=== PATIENT | female | born 1955 | race Caucasian/White ===

== ENCOUNTER 2019-02-21 18:36 | Inpatient (IN) ==
[2019-02-22] MEDS ORDERED: Naloxone 0.4 MG/ML INJ IVP PRN ×2 (00:11→10:06)
--- NOTE | 2019-02-22 00:32 | Internal Med History&Physical ---
Date of Encounter: 02/21/19 Time of Encounter: 23:30 Internal Medicine - H&P: HPI Chief complaint: Fall Admitted From: Hospital to Hospital Transfer Plans for Post Hospital Care: Home History of present illness: Ms. Rivera is a 64 year old female with past medical history significant for hypertension, GERD, depression, and anxiety who presents as hospital transfer from [facility] following mechanical fall at home. Patient states she was turning around in her kitchen and twisted her leg and lost her footing and fell onto her back. Denies striking her head, losing consciousness, or current anticoagulation use. Patient underwent a right total robotic-assisted knee replacement on 02/01/19 at [facility] with Dr. Mason. Following the fall she reports pain to her lower back and her right lower extremity including opening up her recent surgical incision. Does not think she struck her knee during fall but feels that the twisting of her extremity is what caused her incision to reopen. Reports being unable to bear weight on her right lower extremity following fall. Sending ER obtained x-rays of the lumbar spine which showed some degenerative changes and atherosclerotic cyst disease but no evidence of fracture or malalignment, right hip which showed no acute fracture or subluxation, and right knee showed no fracture with intact hardware and soft tissue defect with some subcutaneous air noted. Sending ER spoke with orthopedic surgeon Dr. Mason who advised for patient to be transferred to [facility] and admitted to medicine and he will see in consult. Orthopedic surgery requested patient be started on Vancom ycin and Zosyn and gave dressing instructions to nursing staff. Pain is improved following pain medication received at sending ER. Currently denies any headache, numbness, tingling, chest pain, shortness of breath, cough, abdominal pain, bowel or bladder changes. Patient reports following up with orthopedic office shortly after surgery and had been recovering well until today. Also follows regularly with her PCP. Past Med Surg Social Fam HX - Past Medical History Medical history: GERD, hypertension, migraine Psychiatric history: anxiety, depression - Past Surgical History Surgical History: breast surgery, cholecystectomy, hysterectomy, orthopedic, other, other Additional surgical history: right shoulder. breast reducation. right total knee - Social History Smoking Status: Former smoker Smokeless Tobacco Status: No Alcohol use: none Drug use: none Internal Medicine - H&P: Meds Aspirin Enteric Coated [Aspirin EC] 325 mg PO BID 10 Days #20 tablet. 02/01/19 [Rx] Buspirone HCl [Buspar] 10 mg PO DAILY 02/01/19 [History] Chlorthalidone 25 mg PO DAILY 02/01/19 [History] Docusate Sodium [Colace] 100 mg PO BID 5 Days #10 capsule 02/01/19 [Rx] Docusate Sodium [Dok] 100 mg PO QAM PRN 02/01/19 [History] Fexofenadine HCl 180 mg PO DAILY 02/01/19 [History] Furosemide [Lasix] 20 mg PO DAILY PRN 02/01/19 [History] Gabapentin 600 mg PO BID 02/01/19 [History] Losartan Potassium [Cozaar] 100 mg PO DAILY 02/01/19 [History] Multivitamin [Daily Multiple Vitamin] 1 tab PO DAILY 02/01/19 [History] Multivits Min/Iron/FA/Herb#186 [Hair, Skin and Nails Caplet] 1 tab PO DAILY 02/01/19 [History] Naproxen Sodium [Aleve] 220 mg PO Q12H 02/01/19 [History] Omeprazole [PriLOSEC] 20 mg PO BID 02/01/19 [History] PARoxetine HCl [Paroxetine HCl] 10 mg PO DAILY 02/01/19 [History] Tizanidine HCl 4 mg PO HS PRN 02/01/19 [History] Allergy/AdvReac Type Severity Reaction Status Date / Time Amoxicillin [From Augmentin] AdvReac Diarrhea Verified 02/01/19 07:45 clavulanic acid AdvReac Diarrhea Verified 02/01/19 07:45 [From Augmentin] All Systems PM: A 10-system review of systems was performed and is negative for pertinent findings except as documented above in the HPI. - Constitutional Vitals: Temp Pulse Resp BP Pulse Ox 97.9 F 67 15 119/73 97 02/21/19 23:50 02/21/19 23:50 02/21/19 23:50 02/21/19 23:50 02/21/19 23:50 Exam: General: Alert and oriented. Skin:No rash, no lesions. Bruising noted to right lower extremity, states since surgery. Right knee dressing dry and intact. Cardiovascular:Normal S1 & S2, no rubs, murmurs or gallops. No JVD. Pulse regular. Lungs:Normal breath sounds, no wheezes or crackles. Abdomen:Soft, non-tender, no rigidity. Extremities:No deformity, no edema, no joint swelling, or clubbing. Tenderness noted to right lower extremity. PMS intact. Neurological:Normal cognition and motor skills. Pulses:Carotid and radial pulses normal +2. Rest of the physical exam is non contributory. - Assessment and Plan (1) Fall Current Visit: Yes Status: Acute Assessment and plan: Reports mechanical fall at home. Denies striking head, losing consciousness, or anticoagulation use. Complains of pain following fall to lower back and right lower extremity including opening up of her recent surgical incision. Underwent right robotic- assisted total knee replacement at [facility] on 02/01/19. Sending ER obtained x-rays of the lumbar spine which showed some degenerative changes and atherosclerotic cyst disease but no evidence of fracture or malalignment, right hip which showed no acute fracture or subluxation, and right knee showed no fracture with intact hardware and soft tissue defect with some subcutaneous air noted. Pain improved following pain medications. Continue pain control with PRN pain medications. Sending ER consulted orthopedic surgeon Dr. Mason who agreed to see patient in a.m. Orthopedic surgery requested patient be placed on Vancomycin and Zosyn and gave dressing instructions to nursing staff, antibiotics ordered. Blood cultures ordered. Fall precautions ordered. NPO. Qualifiers: Encounter type: initial encounter Qualified Code(s): W19.XXXA - Unspecified fall, initial encounter (2) Surgical wound dehiscence Current Visit: Yes Status: Acute Assessment and plan: Right total knee replacement wound dehiscence following fall. Plan as stated above. Qualifiers: Encounter type: initial encounter Qualified Code(s): T81.31XA - Disruption of external operation (surgical) wound, not elsewhere classified, initial encounter (3) Hypertension Current Visit: Yes Status: Chronic Assessment and plan: Continue home medications once verified. Qualifiers: Hypertension type: unspecified Qualified Code(s): I10 - Essential (primary) hypertension (4) Depression with anxiety Current Visit: Yes Status: Chronic Assessment and plan: Continue home medications once verified. (5) GERD (gastroesophageal reflux disease) Current Visit: Yes Status: Chronic Assessment and plan: Continue home medications once verified. Qualifiers: Esophagitis presence: esophagitis presence not specified Qualified Code(s): K21.9 - Gastro-esophageal reflux disease without esophagitis - Time Spent With Patient Total time spent is greater than 50% in coordination of care (as documented) at patient's floor/unit and/or counseling patient:
[2019-02-22] MEDS ORDERED: Ondansetron 4 MG/2 ML VIAL IVP PRN (01:02)
[2019-02-22 01:17] LABS: Basophils # 0.1 K/mcL (0.0-0.2); Basophils % 0.6 %; Eosinophils # 0.1 K/mcL (0.0-0.6); Hematocrit 35.8 % (35.3-44.9); Hemoglobin 11.7 g/dL (11.5-15.4); Immature Granulocytes % 0.3 % (0-4); Lymphocytes # 2.7 K/mcL (0.6-4.6); Lymphocytes % 23.4 %; Mean Corpuscular HGB Conc 32.7 g/dL (31.6-35.5); Mean Corpuscular Hemoglobin 28.4 pg (28.0-33.3); Mean Corpuscular Volume 86.9 fL (83.0-100.0); Mean Platelet Volume 9.5 fL (9.4-12.4); Monocytes # 0.8 K/mcL (0.0-1.3); Monocytes % 7.1 %; Neutrophils # 7.8 K/mcL (1.6-8.9); Platelet Count 413 K/mcL (140-400); Red Blood Count 4.12 M/mcL (3.82-4.97); Red Cell Distribution Width 14.4 % (11.5-14.5); Segmented Neutrophils % 67.6 %; White Blood Count 11.5 K/mcL (4.3-11.1)
[2019-02-22 01:32] LABS: BUN/Creatinine Ratio 18 (6-26); Blood Urea Nitrogen 16 mg/dL (8-23); Calcium 9.3 mg/dL (8.6-10.3); Carbon Dioxide 31 mEq/L (23-29); Chloride 98 mEq/L (98-107); Glucose 124 mg/dL (70-105); Osmolality,Calculated 289 (280-300); Potassium 3.3 mEq/L (3.5-5.1); Sodium 138 mEq/L (136-145); eGFR For African Americans > 60 (> 60); eGFR For Non-African Americans > 60 (> 60)
--- NOTE | 2019-02-22 06:33 | Orthopedics Progress Note ---
Date of Encounter: 02/22/19 Time of Encounter: 06:32 Subjective Interval history: Patient seen this morning, status post right total knee replacement February 01. Patient reports doing well, believe she over did it yesterday patient slipped and fell, resulting wound dehiscence. Alert and oriented 3. Right lower extremity neurovascular intact. Dressing clean dry and intact. Discussed with nurse to last visualized the wound, describes a large wound dehiscence. In order to keep the area sterile, this will be addressed in the OR. Plan is for irrigation debridement wound closure. We reviewed the risks and benefits as well as recovery. All questions were answered. The patient agreed to this treatment plan and acknowledged an understanding of the treatment plan as described. Objective Vital signs: Vital Signs Temp Pulse Resp BP Pulse Ox 02/22/19 03:23 98.1 F 64 15 127/77 98 02/21/19 23:50 97.9 F 67 15 119/73 97 02/21/19 20:53 97.9 F 70 15 138/80 97 Intake and Output 02/21/19 02/21/19 02/22/19 15:59 23:59 07:59 Intake Total 50 / 50 250 / 250 Balance 50 / 50 250 / 250 Intake: IV Fluids 250 / 250 Vancocin 1,500 MG In 0.9 % 250 / 250 Sodium Chloride 250 ML @ 167 mls/hr IVPB ONCE ONE Rx#: [id number] Oral 50 / 50 0 / 0 Other: # Voids 1 Weight 102.623 kg Blood Glucose* 117 - Labs CBC & BMP: 02/22/19 00:50 02/22/19 01:00 Labs: Abnormal lab results WBC 11.5 K/mcL (4.3-11.1) H 02/22/19 00:50 Plt Count 413 K/mcL (140-400) H 02/22/19 00:50 Potassium 3.3 mEq/L (3.5-5.1) L 02/22/19 01:00 Carbon Dioxide 31 mEq/L (23-29) H 02/22/19 01:00 Glucose 124 mg/dL (70-105) H 02/22/19 01:00 POC Glucose 117 mg/dL (70-99) H 02/22/19 05:27 Consult Discharge Plan - Plan Referrals: Eboni Arriaga, COOKER OPERATOR [Primary Care Provider] -
--- NOTE | 2019-02-22 06:40 | Anesthesia Evaluation PreOp ---
Date of Encounter: 02/22/19 Time of Encounter: 07:00 - Past History Planned Operation: Rt Wound Closure Knee Cardiac History: HTN, Hyperlipidemia Pulmonary History: Former smoker MAINTAINABILITY ENGINEER History: Other (Migraine, Lumbar Spondylosis) Other Medical History: GERD, Other (Obese) Anesthesia History: No Prior Anesthetic Complications, Past Anesthesia (Rt TKA 02-01-2019) : No Alcohol Use: none Drug use: none Medications and Allergies Aspirin Enteric Coated [Aspirin EC] 325 mg PO BID 10 Days #20 tablet.dr 02/01/19 [Rx] Buspirone HCl [Buspar] 10 mg PO DAILY 02/01/19 [History] Chlorthalidone 25 mg PO DAILY 02/01/19 [History] Docusate Sodium [Colace] 100 mg PO BID 5 Days #10 capsule 02/01/19 [Rx] Docusate Sodium [Dok] 100 mg PO QAM PRN 02/01/19 [History] Fexofenadine HCl 180 mg PO DAILY 02/01/19 [History] Furosemide [Lasix] 20 mg PO DAILY PRN 02/01/19 [History] Gabapentin 600 mg PO BID 02/01/19 [History] Losartan Potassium [Cozaar] 100 mg PO DAILY 02/01/19 [History] Multivitamin [Daily Multiple Vitamin] 1 tab PO DAILY 02/01/19 [History] Multivits Min/Iron/FA/Herb#186 [Hair, Skin and Nails Caplet] 1 tab PO DAILY 02/01/19 [History] Naproxen Sodium [Aleve] 220 mg PO Q12H 02/01/19 [History] Omeprazole [PriLOSEC] 20 mg PO BID 02/01/19 [History] PARoxetine HCl [Paroxetine HCl] 10 mg PO DAILY 02/01/19 [History] Tizanidine HCl 4 mg PO HS PRN 02/01/19 [History] Allergy/AdvReac Type Severity Reaction Status Date / Time Amoxicillin [From Augmentin] AdvReac Diarrhea Verified 02/01/19 07:45 clavulanic acid AdvReac Diarrhea Verified 02/01/19 07:45 [From Augmentin] - Meds/Allergy Pre-op Review Medications Reviewed: Yes Allergies Reviewed: Yes Beta Blockers on Current Med List: No Anesthesia Results - Labs 02/22/19 00:50 02/22/19 01:00 - Imaging EKG: report reviewed (Sinus Clarke) Anesthesia Exam O2 Sat Height 1.6 m Weight 102.623 kg O2 Sat by Pulse Oximetry 90 O2 Sat by Pulse Oximetry 98 O2 Sat by Pulse Oximetry 97 O2 Sat by Pulse Oximetry 97 Vital Signs Temp Pulse Resp BP Pulse Ox 97.9 F 70 15 138/80 97 02/21/19 20:53 02/21/19 20:53 02/21/19 20:53 02/21/19 20:53 02/21/19 20:53 Height: 5'3 Weight: 226 lbs NPO (# of Hours): MN Pain Scale: 1 - HEENT Pupil (Motor): Pupils equal, EOMI Mallampati: III Teeth: Normal Oral Opening: Less than or equal to 3 - MAINTAINABILITY ENGINEER LOC: Oriented MAINTAINABILITY ENGINEER Motor: Normal RUE, Normal LUE, Normal LLE, Normal Face, Deficit RLE (s/p TKA open wound) MAINTAINABILITY ENGINEER Sensory: Normal: RUE, LUE, RLE, LLE, Face - Cardiac Rhythm: Regular Murmur: None JVD: No Carotid Bruit: No - Pulmonary Breath Sounds: bilateral Clear Respiratory Effort: Symmetrical Anesthesia Assess/Plan ASA Score: 2 Level of consciousness: Cooperative, Oriented Anesthetic Plan: General Autologous Blood: No Monitoring Plan: Standard Monitors Recovery Plan: PACU (Discussed GA, agrees to proceed)
[2019-02-22] MEDS ORDERED: Famotidine 20 MG/2 ML VIAL IVP ONE ×2 (06:43→10:06)
[2019-02-22] MEDS ORDERED: Acetaminophen IV 1,000 MG/100 ML INFUS..BTL IVPB ONE ×2 (06:44→10:06)
[2019-02-22] MEDS ORDERED: Ringers Solution, Lactated 1,000 ML IVC SCH ×3 (06:45→10:06)
[2019-02-22] MEDS ORDERED: Lidocaine -MPF 2% 2 ML VIAL ONE (07:04)
[2019-02-22] MEDS ORDERED: *HR* Midazolam HCl 2 MG/2 ML VIAL ONE (07:04)
[2019-02-22] MEDS ORDERED: *HR* FentaNYL (PF) 100 MCG/2 ML VIAL ONE ×2 (07:04→08:23)
[2019-02-22] MEDS ORDERED: *HR* Propofol 200 MG/20 ML VIAL IVP ONE (07:04)
[2019-02-22] MEDS ORDERED: Ondansetron 4 MG/2 ML VIAL ONE (07:09)
[2019-02-22] MEDS ORDERED: Dexamethasone 4 MG/ML VIAL ONE (07:11)
[2019-02-22] MEDS ORDERED: Ethanol\\Acetic Acid\\Na Ace\\Ben 1,000 ML IRRIG.SOLN IR ONE ×2 (07:15→08:04)
[2019-02-22] MEDS ORDERED: Famotidine 20 MG/2 ML VIAL ONE (07:26)
[2019-02-22] MEDS ORDERED: Piperacillin/Tazobactam 3.375 GM in 0.9 % Sodium Chloride Mini Bag 100 ML IVPB SCH (08:00)
--- NOTE | 2019-02-22 08:11 | Orthopedic Operative Note ---
Date of procedure: 02/22/19 Pre-op diagnosis: Right knee wound dehiscence with extensor mechanism injury Post-op diagnosis: same Procedure: Procedure: Right knee irrigation debridement extensor mechanism repair and wound closure. Estimated blood loss 10 mL Findings: Aspiration of knee consistent with hemarthrosis sent for Gram stain and culture, superficial wound dehiscence, with deeper extensor mechanism injury, with damage to the previous arthrotomy repair Dictation of surgery: Patient brought to the operative placement operative table after general anesthesia was administered the right knee was examined. Patient had a central wound dehiscence, this was on the surface, the right lower extremity is prepped and draped in sterile surgical fashion patient received IV advice prior skin incision. Prior skin incision away from the opening the knee was aspirated consistent with hemarthrosis. Sent for Gram stain and culture. Superficial cultures were obtained to near the wound dehiscence. The wound dehiscence was opened up and explored beneath the superficial injury was an injury to the previous arthrotomy repair. The extensor mechanism. Superficially suture material was removed, the injury was almost the entire incision. This was irrigated. Exploration revealed the disruption of the arthrotomy, this was then opened up to the fullest. Suture material was removed here. No obvious damage to the joint replacement. Patient underwent extensive irrigation and debridement of fibrinous tissue, the knee sat for 1 minute with antibacterial solution was irrigated out with 1 L of pulse irrigation with a second antibacterial solution and then 2 L of pulse irrigation with normal saline. The extensor mechanism was closed with a, a FiberWire suture and Monocryl suture and augmented with PDS suture. The knee was closed by the PA in layers, PDS Monocryl and skin servando. Patient placed in a sterile dressing, postoperative brace, transferred to recovery room in stable condition. Anesthesia: GETA Surgeon: Musa Mason Was there an certified dental assistant present: Yes Circle Edger: Marva Santiago Estimated blood loss (cc): 10 Condition: stable Disposition: PACU
[2019-02-22] MEDS: *HR* HYDROmorphone (PF) 1 MG/ML SYRINGE IVP PRN ×3 (09:20→09:30)
[2019-02-22] MEDS ORDERED: Temazepam 15 MG CAPSULE PO PRN (10:06)
[2019-02-22] MEDS ORDERED: Sennosides 8.6 MG TABLET PO PRN (10:06)
[2019-02-22] MEDS ORDERED: MOM Conc 10 ML UD.LIQ PO PRN (10:06)
[2019-02-22] MEDS ORDERED: *HR* Promethazine 25 MG/ML VIAL IVP PRN (10:06)
--- NOTE | 2019-02-22 10:10 | Anesthesia Evaluation Post Op ---
Date of Encounter: 02/22/19 Time of Encounter: 10:09 - Vital Signs Vital Signs: Vital Signs/O2 Sat, Most Current Temp Pulse Resp BP Pulse Ox 97.0 F L 77 16 137/78 96 02/22/19 08:48 02/22/19 09:48 02/22/19 09:48 02/22/19 09:48 02/22/19 09:48 - Lungs Lungs: Clear Ascult./Percussion - Airway Airway: Non-obstructed - Cardiovascular Regular Rate, Baseline Rhythm - Mental Status Mental Status: Alert & Oriented, Answers Appropriately - Nausea Vomiting Nausea Vomiting: Not Present - Discharge PostOp Status: Transfer Patient to floor
[2019-02-22] MEDS ORDERED: tiZANidine 4 MG TABLET PO PRN (10:33)
[2019-02-22] MEDS ORDERED: NON-FORMULARY MEDICATION 1 EACH EACH (Naproxen Sodium [Aleve] 220 MG) PO SCH (10:45)
--- NOTE | 2019-02-22 11:29 | Electrocardiograph Report ---
[address] [address] Test Date: 2019-02-22 Pat Name: Purvi Rivera Department: 115 Room: [facility] Gender: F Cotton Roll Packer: : [id number] Requested By: Adam Escobar Order Number: [id number] Reading MD: Tami Carpenter Measurements Intervals [place] Rate: 66 P: 61 [place]: 152 QRS: 41 QRSD: 105 T: 34 QT: 415 QTc: 429 Interpretive Statements SINUS RHYTHM Electronically Signed On 02-22-2019 11:27:53 EDT by Tami Carpenter
[2019-02-22] MEDS: Multivit/Ca/Min/Fe/FA 1 TAB TABLET PO SCH (12:07)
[2019-02-22] MEDS: Piperacillin/Tazobactam 3.375 GM in 0.9 % Sodium Chloride Mini Bag 100 ML IVPB SCH ×2 (12:49→20:59)
[2019-02-22] MEDS: 0.9 % Sodium Chloride 1,000 ML IVC SCH (12:51)
--- NOTE | 2019-02-22 14:07 | Internal Med Progress Note ---
Hospitalist Progress Note - Encounter Date of Encounter: 02/22/19 Time of Encounter: 14:04 - Subjective Interval History: Ms. Rivera is a 64 year old female with past medical history significant for hypertension, GERD, depression, and anxiety who presents as hospital transfer from [facility] following mechanical fall at home. Patient underwent a right total robotic-assisted knee replacement on 02/01/19 at [facility] with Dr. Mason. The wound was found dehiscenced and ortho was consulted. She was taken to oral for woudn dehiscence repair and washout 02/22. IV abx with zosyn and vanco was started. Patient seen and examined in the room. She just came back from OR, she is complaining right knee pain, reported absence of fever, chills, or night sweats. - Exam Vitals: Temp Pulse Resp BP Pulse Ox 97.5 F L 65 14 129/75 98 02/22/19 13:00 02/22/19 13:00 02/22/19 13:00 02/22/19 13:00 02/22/19 13:00 Exam: General: Alert and oriented. Skin:No rash, no lesions. Bruising noted to right lower extremity, states since surgery. Right knee dressing dry and intact. Cardiovascular:Normal S1 & S2, no rubs, murmurs or gallops. No JVD. Pulse regular. Lungs:Normal breath sounds, no wheezes or crackles. Abdomen:Soft, non-tender, no rigidity. Extremities: right knee dressing with immobile device Neurological:Normal cognition and motor skills. Pulses:Carotid and radial pulses normal +2. Rest of the physical exam is non contributory. - Assessment and Plan (1) Fall Current Visit: Yes Status: Acute Assessment and Plan: 02/21 Reports mechanical fall at home. Denies striking head, losing consciousness, or anticoagulation use. Complains of pain following fall to lower back and right lower extremity including opening up of her recent surgical incision. Underwent right robotic- assisted total knee replacement at [facility] on 02/01/19. Sending ER obtained x-rays of the lumbar spine which showed some degenerative changes and atherosclerotic cyst disease but no evidence of fracture or malalignment, right hip which showed no acute fracture or subluxation, and right knee showed no fracture with intact hardware and soft tissue defect with some subcutaneous air noted. Pain improved following pain medications. Continue pain control with PRN pain medications. Sending ER consulted orthopedic surgeon Dr. Mason who agreed to see patient in a.m. Orthopedic surgery requested patient be placed on Vancomycin and Zosyn and gave dressing instructions to nursing staff, antibiotics ordered. Blood cultures ordered. Fall precautions ordered. NPO. 02/22 s/p right knee dehiscence repair and washout. Culture pending. Gram stain negative. Currently on Zosyn and Vanco per Ortho. (2) Surgical wound dehiscence Current Visit: Yes Status: Acute Assessment and Plan: Right total knee replacement wound dehiscence following fall. Plan as stated above. (3) Hypertension Current Visit: No Status: Chronic Assessment and Plan: Continue home medications. Pain control. (4) Depression with anxiety Current Visit: No Status: Chronic Assessment and Plan: Continue home medications. (5) GERD (gastroesophageal reflux disease) Current Visit: No Status: Chronic Assessment and Plan: Continue home medications. DVT Prophylaxis: Heparin subcutaneous. - Time Spent with Patient Total time spent is greater than 50% in coordination of care (as documented) at patient's floor/unit and/or counseling patient: Greater than 35 minutes Plan of Care Discussed with: patient Internal Medicine: Result - Labs CBC & Chem 7: 02/22/19 00:50 02/22/19 01:00 Labs: Short CBC 02/22/19 Range/Units 00:50 WBC 11.5 H (4.3-11.1) K/mcL Hgb 11.7 (11.5-15.4) g/dL Hct 35.8 (35.3-44.9) % Plt Count 413 H (140-400) K/mcL Neutrophils # 7.8 (1.6-8.9) K/mcL BMP 02/22/19 01:00 Sodium 138 Potassium 3.3 L Chloride 98 Carbon Dioxide 31 H BUN 16 Creatinine 0.89 Glucose 124 H Calcium 9.3 Consult Discharge Plan - Plan Referrals: Eboni Arriaga, INSURANCE INVESTIGATOR [Primary Care Provider] - (1) Fall Qualifiers: Encounter type: initial encounter Qualified Code(s): W19.XXXA - Unspecified fall, initial encounter (2) Surgical wound dehiscence Qualifiers: Encounter type: initial encounter Qualified Code(s): T81.31XA - Disruption of external operation (surgical) wound, not elsewhere classified, initial encounter (3) Hypertension Qualifiers: Hypertension type: unspecified Qualified Code(s): I10 - Essential (primary) hypertension (5) GERD (gastroesophageal reflux disease) Qualifiers: Esophagitis presence: esophagitis presence not specified Qualified Code(s): K21.9 - Gastro-esophageal reflux disease without esophagitis
[2019-02-22] MEDS: *HR* Heparin 5,000 UNIT/ML VIAL SQ SCH ×2 (16:27→23:15)
[2019-02-22] MEDS: Ascorbic Acid 500 MG TABLET PO SCH (16:27)
[2019-02-22] MEDS: Gabapentin 300 MG CAPSULE PO SCH (20:59)
[2019-02-23] MEDS: 0.9 % Sodium Chloride 1,000 ML IVC SCH (01:35)
[2019-02-23] MEDS: Piperacillin/Tazobactam 3.375 GM in 0.9 % Sodium Chloride Mini Bag 100 ML IVPB SCH ×3 (03:47→17:17)
[2019-02-23 05:42] LABS: Basophils % 0.4 %; Eosinophils # 0.1 K/mcL (0.0-0.6); Eosinophils % 0.5 %; Hematocrit 33.1 % (35.3-44.9); Hemoglobin 10.7 g/dL (11.5-15.4); Immature Granulocytes % 0.3 % (0-4); Lymphocytes # 2.3 K/mcL (0.6-4.6); Lymphocytes % 21.9 %; Mean Corpuscular HGB Conc 32.3 g/dL (31.6-35.5); Mean Corpuscular Hemoglobin 28.2 pg (28.0-33.3); Mean Corpuscular Volume 87.1 fL (83.0-100.0); Mean Platelet Volume 9.5 fL (9.4-12.4); Monocytes # 0.8 K/mcL (0.0-1.3); Monocytes % 7.2 %; Neutrophils # 7.4 K/mcL (1.6-8.9); Platelet Count 383 K/mcL (140-400); Red Cell Distribution Width 14.4 % (11.5-14.5); Segmented Neutrophils % 69.7 %; White Blood Count 10.6 K/mcL (4.3-11.1)
[2019-02-23] MEDS: *HR* Heparin 5,000 UNIT/ML VIAL SQ SCH ×3 (05:59→23:36)
[2019-02-23 06:03] LABS: BUN/Creatinine Ratio 15 (6-26); Blood Urea Nitrogen 15 mg/dL (8-23); Calcium 8.8 mg/dL (8.6-10.3); Carbon Dioxide 29 mEq/L (23-29); Chloride 100 mEq/L (98-107); Glucose 126 mg/dL (70-105); Osmolality,Calculated 288 (280-300); Potassium 4.1 mEq/L (3.5-5.1); Sodium 138 mEq/L (136-145); eGFR For African Americans > 60 (> 60); eGFR For Non-African Americans 57 (> 60)
--- NOTE | 2019-02-23 06:33 | Orthopedics Progress Note ---
Date of Encounter: 02/23/19 Time of Encounter: 06:32 Subjective Interval history: Patient was seen this morning doing well without complaints. Afebrile vital signs stable. Operative extremity: Neurovascularly intact Dressing clean dry and intact Calves nontender Assessment and plan: Continue with postoperative care Hematocrit 33 plan for discharge tomorrow. Objective Vital signs: Vital Signs Temp Pulse Resp BP Pulse Ox 02/22/19 23:18 76 107/69 02/22/19 20:59 96 02/22/19 19:25 98.0 F 68 17 151/71 96 02/22/19 13:00 97.5 F L 65 14 129/75 98 02/22/19 12:00 98.1 F 74 12 117/70 96 02/22/19 11:02 98 F 78 15 138/78 98 02/22/19 10:30 98.3 F 69 14 138/77 92 02/22/19 10:04 98.3 F 69 13 127/69 97 02/22/19 09:48 77 16 137/78 96 02/22/19 09:38 77 16 167/71 97 02/22/19 09:28 77 16 168/78 96 02/22/19 09:18 81 18 152/86 94 02/22/19 09:08 81 18 170/85 96 02/22/19 08:58 75 16 156/94 95 02/22/19 08:48 97.0 F L 67 12 146/87 94 02/22/19 07:31 71 16 127/58 99 02/22/19 06:35 97.8 F 66 17 126/78 90 Intake and Output 02/22/19 02/22/19 02/23/19 15:59 23:59 07:59 Intake Total 350 / 600 1100 / 1100 Output Total 1110 / 1410 300 / 1410 400 / 400 Balance -1110 / -810 50 / -810 700 / 700 Intake: IV Fluids 350 / 600 1100 / 1100 0.9 % Sodium Chloride 1,000 ML 1000 / 1000 @ 75 mls/hr IVC .[id number] [facility] Rx #:[id number] Zosyn 3.375 GM In 0.9 % Sodium 100 / 100 100 / 100 Chloride (Mini-Bag +) 100 ML @ 25 mls/hr IVPB Q8H [facility] Rx#: [id number] Vancocin 1,000 MG In 0.9 % 250 / 250 Sodium Chloride 250 ML @ 166. 667 mls/hr IVPB Q12H [facility] Rx#: [id number] Output: Urine 1100 / 1400 300 / 1400 400 / 400 Estimated Blood Loss Other: Meal Lunch Percent of Meal Consumed 70% # Voids 1 Weight 102.8 kg Patient Weight 02/23/19 23:59 Weight 102.8 kg - Labs CBC & BMP: 02/23/19 05:18 02/23/19 05:18 Labs: Abnormal lab results WBC 11.5 K/mcL (4.3-11.1) H 02/22/19 00:50 RBC 3.80 M/mcL (3.82-4.97) L 02/23/19 05:18 Hgb 10.7 g/dL (11.5-15.4) L 02/23/19 05:18 Hct 33.1 % (35.3-44.9) L 02/23/19 05:18 Plt Count 413 K/mcL (140-400) H 02/22/19 00:50 Potassium 3.3 mEq/L (3.5-5.1) L 02/22/19 01:00 Carbon Dioxide 31 mEq/L (23-29) H 02/22/19 01:00 Est GFR (Non-Af Amer) 57 (> 60) L 02/23/19 05:18 Glucose 126 mg/dL (70-105) H 02/23/19 05:18 POC Glucose 117 mg/dL (70-99) H 02/22/19 05:27 Consult Discharge Plan - Plan Referrals: Eboni Arriaga, LUMBER HACKER [Primary Care Provider] -
[2019-02-23] MEDS ORDERED: NON-FORMULARY MEDICATION 1 EACH EACH (Multivits Min/Iron/Fa/Herb#186 [Hair, Skin And Nails PO SCH (09:00)
[2019-02-23] MEDS ORDERED: Multivitamin Liquid 15 ML UDC PO SCH (09:00)
[2019-02-23] MEDS: Gabapentin 300 MG CAPSULE PO SCH ×2 (09:45→20:14)
[2019-02-23] MEDS: Ascorbic Acid 500 MG TABLET PO SCH ×2 (09:45→17:17)
[2019-02-23] MEDS: Multivit/Ca/Min/Fe/FA 1 TAB TABLET PO SCH (09:45)
--- NOTE | 2019-02-23 11:31 | Event Note ---
Date of Encounter: 02/23/19 Time of Encounter: 12:45 POD#1 s/p Right knee irrigation debridement extensor mechanism repair and wound closure [Right knee wound dehiscence with extensor mechanism injury] 02/22/19 Patient seen at bedside. A&Ox3 Dressing and incision c/d/i TROM brace in locked extension in place with appropriate fit. No calf tenderness, erythema, or warmth. Neurovascularly intact b/l LE. Labwork, vitals, and medications reviewed. Pain control: Adequate Participating in therapy. All questions and concerns addressed. Educated on use of incentive spirometer, ambulation, and hydration. Patient educated on post-operative restrictions and care. Addressed: AWAITING CULTURES - PRELIM superficial demonstrate GNR. Awaiting further results re: antibiotic management. May require ID consultation depending on results and sensitivity. WBAT in brace in locked extension with walker for stability Brace at all times with wheels to either side of knee NO knee motion Remove brace for hygiene only - spot clean only - do not submerge brace. Patient course and disposition discussed with Dr. Mason D/C plan: awaiting further laboratory results
[2019-02-23] MEDS ORDERED: Furosemide 20 MG TABLET PO PRN (13:30)
--- NOTE | 2019-02-23 13:40 | Internal Med Progress Note ---
Hospitalist Progress Note - Encounter Date of Encounter: 02/23/19 Time of Encounter: 08:30 - Subjective Interval History: Seen at bedside. GOt the right knee irrigation and debridement and wound closure yesterday. Denies any pain. Denied fever, chills, rigors. She is feeling fine. Likely to go home tomorrow. No other overnight events. - Exam Vitals: Temp Pulse Resp BP Pulse Ox 98.0 F 69 18 144/78 96 02/23/19 07:02 02/23/19 07:02 02/23/19 07:02 02/23/19 07:02 02/22/19 20:59 Exam: General: Alert and oriented. Skin:No rash, no lesions. Bruising noted to right lower extremity, states since surgery. Right knee dressing dry and intact. Cardiovascular:Normal S1 & S2, no rubs, murmurs or gallops. No JVD. Pulse regular. Lungs:Normal breath sounds, no wheezes or crackles. Abdomen:Soft, non-tender, no rigidity. Extremities: right knee dressing with immobile device Neurological:Normal cognition and motor skills. Pulses:Carotid and radial pulses normal +2. Rest of the physical exam is non contributory. - Assessment and Plan (1) Fall Current Visit: Yes Status: Acute Assessment and Plan: -HAd Reports mechanical fall at home. -CT scan of the head was negative. -Complains of pain following fall to lower back and right lower extremity including opening up of her recent surgical incision. Underwent right robotic- assisted total knee replacement at [facility] on 02/01/19. -ER obtained x-rays of the lumbar spine which showed some degenerative changes and atherosclerotic cyst disease but no evidence of fracture or malalignment, right hip which showed no acute fracture or subluxation, and right knee showed no fracture with intact hardware and soft tissue defect with some subcutaneous air noted. -ortho was consulted who did Right knee irrigation debridement extensor mechanism repair and wound closure. -Pain improved following pain medications. Continue pain control with PRN pain medications. -Currently on vanc and zosyn -Wound culutures showing GNR (2) Surgical wound dehiscence Current Visit: Yes Status: Acute Assessment and Plan: -Right total knee replacement wound dehiscence following fall. -Plan as stated above. (3) Hypertension Current Visit: No Status: Chronic Assessment and Plan: -Continue home medications.l. (4) Depression with anxiety Current Visit: No Status: Chronic Assessment and Plan: -Continue home medications. (5) GERD (gastroesophageal reflux disease) Current Visit: No Status: Chronic Assessment and Plan: -Continue home medications. - Time Spent with Patient Total time spent is greater than 50% in coordination of care (as documented) at patient's floor/unit and/or counseling patient: Internal Medicine: Result - Labs CBC & Chem 7: 02/23/19 05:18 02/23/19 05:18 Labs: Short CBC 02/23/19 Range/Units 05:18 WBC 10.6 (4.3-11.1) K/mcL Hgb 10.7 L (11.5-15.4) g/dL Hct 33.1 L (35.3-44.9) % Plt Count 383 (140-400) K/mcL Neutrophils # 7.4 (1.6-8.9) K/mcL BMP 02/23/19 05:18 Sodium 138 Potassium 4.1 Chloride 100 Carbon Dioxide 29 BUN 15 Creatinine 0.98 Glucose 126 H Calcium 8.8 Consult Discharge Plan - Plan Referrals: Eboni Arriaga, FRUIT HARVESTER [Primary Care Provider] - (1) Fall Qualifiers: Encounter type: initial encounter Qualified Code(s): W19.XXXA - Unspecified fall, initial encounter (2) Surgical wound dehiscence Qualifiers: Encounter type: initial encounter Qualified Code(s): T81.31XA - Disruption of external operation (surgical) wound, not elsewhere classified, initial encounter (3) Hypertension Qualifiers: Hypertension type: unspecified Qualified Code(s): I10 - Essential (primary) hypertension (5) GERD (gastroesophageal reflux disease) Qualifiers: Esophagitis presence: esophagitis presence not specified Qualified Code(s): K21.9 - Gastro-esophageal reflux disease without esophagitis
[2019-02-24] MEDS ORDERED: 0.9 % Sodium Chloride 250 ML ONE (02:08)
[2019-02-24] MEDS: Piperacillin/Tazobactam 3.375 GM in 0.9 % Sodium Chloride Mini Bag 100 ML IVPB SCH ×3 (02:28→20:59)
[2019-02-24] MEDS: *HR* Heparin 5,000 UNIT/ML VIAL SQ SCH ×3 (05:57→20:59)
[2019-02-24 06:39] LABS: Basophils # 0.1 K/mcL (0.0-0.2); Basophils % 1.2 %; Eosinophils # 0.3 K/mcL (0.0-0.6); Eosinophils % 3.4 %; Hematocrit 33.5 % (35.3-44.9); Hemoglobin 10.8 g/dL (11.5-15.4); Immature Granulocytes % 0.1 % (0-4); Lymphocytes # 2.4 K/mcL (0.6-4.6); Lymphocytes % 33.3 %; Mean Corpuscular HGB Conc 32.2 g/dL (31.6-35.5); Mean Corpuscular Hemoglobin 28.3 pg (28.0-33.3); Mean Corpuscular Volume 87.7 fL (83.0-100.0); Mean Platelet Volume 9.6 fL (9.4-12.4); Monocytes # 0.6 K/mcL (0.0-1.3); Monocytes % 7.5 %; Platelet Count 372 K/mcL (140-400); Red Blood Count 3.82 M/mcL (3.82-4.97); Red Cell Distribution Width 14.6 % (11.5-14.5); Segmented Neutrophils % 54.5 %; White Blood Count 7.3 K/mcL (4.3-11.1)
--- NOTE | 2019-02-24 06:52 | Orthopedics Progress Note ---
Date of Encounter: 02/24/19 Time of Encounter: 06:51 Subjective Interval history: Patient was seen this morning doing well without complaints. Afebrile vital signs stable. Operative extremity: Neurovascularly intact Dressing clean dry and intact Calves nontender Assessment and plan: Continue with postoperative care Superficial cultures grown Klebsiella, nothing growing from intra-articular. Recommend IV antibiotics for 6 weeks. Objective Vital signs: Vital Signs Temp Pulse Resp BP Pulse Ox 02/24/19 03:58 98.1 F 63 16 123/74 95 02/23/19 23:11 97.9 F 67 17 132/77 96 02/23/19 18:48 98.3 F 83 17 126/56 100 02/23/19 07:02 98.0 F 69 18 144/78 Intake and Output 02/23/19 02/23/19 02/24/19 15:59 23:59 07:59 Intake Total 350 / 2020 220 / 2020 100 / 100 Output Total 600 / 2400 600 / 2400 Balance -250 / -380 -380 / -380 100 / 100 Intake: IV Fluids 350 / 1900 100 / 1900 100 / 100 Zosyn 3.375 GM In 0.9 % Sodium 100 / 400 100 / 400 100 / 100 Chloride (Mini-Bag +) 100 ML @ 25 mls/hr IVPB Q8H [facility] Rx#: [id number] Vancocin 1,000 MG In 0.9 % 250 / 500 Sodium Chloride 250 ML @ 166. 667 mls/hr IVPB Q12H [facility] Rx#: [id number] Oral 120 / 120 Output: Urine 600 / 2400 600 / 2400 Other: Meal Dinner Percent of Meal Consumed 100% - Labs CBC & BMP: 02/24/19 06:19 02/23/19 05:18 Labs: Abnormal lab results WBC 11.5 K/mcL (4.3-11.1) H 02/22/19 00:50 RBC 3.80 M/mcL (3.82-4.97) L 02/23/19 05:18 Hgb 10.8 g/dL (11.5-15.4) L 02/24/19 06:19 Hct 33.5 % (35.3-44.9) L 02/24/19 06:19 RDW 14.6 % (11.5-14.5) H 02/24/19 06:19 Plt Count 413 K/mcL (140-400) H 02/22/19 00:50 Potassium 3.3 mEq/L (3.5-5.1) L 02/22/19 01:00 Carbon Dioxide 31 mEq/L (23-29) H 02/22/19 01:00 Est GFR (Non-Af Amer) 57 (> 60) L 02/23/19 05:18 Glucose 126 mg/dL (70-105) H 02/23/19 05:18 POC Glucose 117 mg/dL (70-99) H 02/22/19 05:27 Vancomycin Trough 15 mcg/mL (5-10) H 02/23/19 11:47 Consult Discharge Plan - Plan Referrals: Eboni Arriaga, HOSPITAL MANAGER [Primary Care Provider] -
[2019-02-24 07:00] LABS: BUN/Creatinine Ratio 17 (6-26); Blood Urea Nitrogen 16 mg/dL (8-23); Calcium 8.8 mg/dL (8.6-10.3); Carbon Dioxide 31 mEq/L (23-29); Chloride 104 mEq/L (98-107); Glucose 109 mg/dL (70-105); Osmolality,Calculated 298 (280-300); Potassium 3.7 mEq/L (3.5-5.1); Sodium 143 mEq/L (136-145); eGFR For African Americans > 60 (> 60); eGFR For Non-African Americans > 60 (> 60)
[2019-02-24] MEDS ORDERED: Lidocaine -MPF 1% 5 ML AMPUL INFILT ONE (09:52)
[2019-02-24] MEDS: Aspirin Enteric Coated 81 MG Tablet PO SCH (10:02)
[2019-02-24] MEDS: Gabapentin 300 MG CAPSULE PO SCH ×2 (10:03→21:01)
[2019-02-24] MEDS: Multivit/Ca/Min/Fe/FA 1 TAB TABLET PO SCH (10:03)
[2019-02-24] MEDS: Ascorbic Acid 500 MG TABLET PO SCH ×2 (10:03→16:14)
--- NOTE | 2019-02-24 13:11 | Event Note ---
Date of Encounter: 02/24/19 Time of Encounter: 10:15 POD#2 s/p Right knee irrigation debridement extensor mechanism repair and wound closure [Right knee wound dehiscence with extensor mechanism injury] 02/22/19 Patient seen at bedside. Sitting in chair. Patient's [id number] at bedside. Patient gives verbal consent to speak about her medical care in presence of family. A&Ox3 Dressing and incision c/d/i TROM brace in locked extension in place with appropriate fit. No calf tenderness, erythema, or warmth. Neurovascularly intact b/l LE. Labwork, vitals, and medications reviewed. Pain control: Adequate Participating in therapy. All questions and concerns addressed. Educated on use of incentive spirometer, ambulation, and hydration. Patient educated on post-operative restrictions and care. Addressed: AWAITING CULTURES - PRELIM superficial demonstrate Klebsiella aerogenes. Sensitivity report reviewed. Given that patient had disruption of wound through capsule with extensor mechanism injury, concern for joint infection potential exists. patient will require intermediate term IV antibiotics of 6weeks. PICC team consulted for placement. ID consultation requested for assistance in appropriate antibiotic selection. Personally spoke with Dr. Otero re: patient's status and he agrees to see patient. WBAT in brace in locked extension with walker for stability Brace at all times with wheels to either side of knee NO knee motion Remove brace for hygiene only - spot clean only - do not submerge brace. Patient course and disposition discussed with Dr. Mason D/C plan: Home with home health vs ECF for IV antibiotic administration.
[2019-02-24] MEDS ORDERED: ALPRAZolam 0.5 MG TABLET PO ONE (13:12)
--- NOTE | 2019-02-24 13:47 | Infectious Disease Consult ---
Infectious Disease-Consult - Encounter Date/Time Date of Encounter: 02/24/19 Time of Encounter: 13:46 - Data of Consult Patient: new to practice Reason for consult: Concern for septic arthritis Consult date: 02/24/19 Requesting Physician: Rafael Burnett Primary Care Provider: Eboni Arriaga CNP - HPI HPI: Patient is a 64 year old gentleman who presented to [facility] on 02/22 as a hospital to hospital transfer for a fall, we are consulted on 02/24 for antibiotics recommendations. Briefly, Patient is a 64 year old woman with PMH of HTN, GERD, Anxiety/depression who underwent robotic assisted TKA of the right on 02/01/19 and discharged with no complications suffered a fall at home and struck her knee. Patient had wound dehisence and was tranferred for evaluation. Since admission, vital signs reveal no fever, no tachycardia and no tachypnea. labs revealed WBC of 11.5 with normal diff, BUN/Cr 16/0.89. Patient was taken to the OR on 02/22 where she underwent R knee I&D, extensor mechanism repair and wound closure due to deep extensor mechanism injury with damage to previous arthrotomy repair. wound cultures were sent and they grew Klebsiella aerogenes ortiz sensitive. Patient was started on broad spectrum antibiotics and we were asked to see patient and make further recommendations. Currenlty patient laying in bed. appears comfortable. No LUND, no CP, no SOB, no N/V. She does admit to 2 bouts of diarrhea that were watery. Patient denies any abdominal pain and no urinary symptoms. Pain under control - ROS Review of Systems: 10 point review of systems done, negative other for what mentioned in history of present illness - Results CBC & Chem 7: 02/24/19 06:19 02/24/19 06:19 - Exam Vitals: Temp Pulse Resp BP Pulse Ox 97.6 F 76 16 120/73 99 02/24/19 07:00 02/24/19 07:00 02/24/19 07:00 02/24/19 07:00 02/24/19 07:00 Exam: GENERAL: Laying in bed, appears comfortable. HEAD: Normocephalic atraumatic EYES: PERRLA, EOMI, no conjunctival hemorrhage, sclera anicteric ENT: Mucous membranes moist, no oral thrush NECK: Supple. No meningeal signs. No masses LUNGS: Chest expanding symmetrically. Lungs sounds audible both lung zarco. No wheezing, no rhonchi CV: RRR, S1S2, ABDOMEN: Soft, nontender, nondistended. Bowel sounds audible and hyperactive BACK: No CVA tenderness. Normal inspection. No tenderness over the spine EXTREMITY: Adequate perfusion. R knee surgical wound intact without drainage, erythema SKIN: Normal color. No rash. NEURO: Awake alert oriented 3. No obvious focal deficit PSYCH: Calm and appropriate. No agitation. Buspirone HCl [Buspar] 10 mg PO DAILY 02/01/19 [History] Docusate Sodium [Dok] 100 mg PO QAM PRN 02/01/19 [History] Fexofenadine HCl 180 mg PO DAILY 02/01/19 [History] Furosemide [Lasix] 20 mg PO DAILY PRN 02/01/19 [History] Gabapentin 600 mg PO BID 02/01/19 [History] Losartan Potassium [Cozaar] 100 mg PO DAILY 02/01/19 [History] Multivitamin [Daily Multiple Vitamin] 1 tab PO DAILY 02/01/19 [History] Multivits Min/Iron/FA/Herb#186 [Hair, Skin and Nails Caplet] 1 tab PO DAILY 02/01/19 [History] Naproxen Sodium [Aleve] 220 mg PO Q12H 02/01/19 [History] Omeprazole [PriLOSEC] 20 mg PO BID 02/01/19 [History] PARoxetine HCl [Paroxetine HCl] 10 mg PO DAILY 02/01/19 [History] Tizanidine HCl 4 mg PO BID PRN 02/01/19 [History] Acetaminophen [Tylenol] 500 mg PO Q8H PRN 02/22/19 [History] Aspirin [Lo-Dose Aspirin EC] 81 mg PO DAILY 02/22/19 [History] Chlorthalidone 50 mg PO DAILY 02/22/19 [History] Allergy/AdvReac Type Severity Reaction Status Date / Time Amoxicillin [From Augmentin] AdvReac Diarrhea Verified 02/01/19 07:45 clavulanic acid AdvReac Diarrhea Verified 02/01/19 07:45 [From Augmentin] - Assessment and Plan (1) Status post total right knee replacement Current Visit: No Status: Acute s/p TKA right on 02/01/19 SNOMED Code(s): 0609954720896, 9074864536479 (2) Surgical wound dehiscence Current Visit: Yes Status: Acute s/p fall at home with trauma to R knee s/p TKA R 02/01/19 wound dehiscence s/p Right knee irrigation debridement extensor mechanism repair and wound closure 02/22/19 superficial wound culture positive for pansensitive Klebsiella aerogenes intra op cultures not finalized yet Qualifiers: Encounter type: initial encounter Qualified Code(s): T81.31XA - Disruption of external operation (surgical) wound, not elsewhere classified, initial encounter SNOMED Code(s): 22145891 (3) Diarrhea Current Visit: Yes Status: Acute could be related to antibiotics need to rule out C diff SNOMED Code(s): 66193888 (4) HTN (hypertension) Current Visit: No Status: Chronic Qualifiers: Hypertension type: unspecified Qualified Code(s): I10 - Essential (primary) hypertension SNOMED Code(s): 14621679 (5) Depression Current Visit: No Status: Chronic Qualifiers: Depression Type: unspecified Qualified Code(s): F32.9 - Major depressive disorder, single episode, unspecified SNOMED Code(s): 29996042 (6) Fall Current Visit: Yes Status: Acute Qualifiers: Encounter type: initial encounter Qualified Code(s): W19.XXXA - Unspecified fall, initial encounter SNOMED Code(s): 0205012, 494341874 (7) Depression with anxiety Current Visit: No Status: Chronic SNOMED Code(s): 193745216 (8) Morbid obesity with BMI of 40.0-44.9, adult Current Visit: Yes Status: Acute SNOMED Code(s): 685157245, 95476690816243 (9) Drug allergy, antibiotic Current Visit: Yes Status: Acute no true allergy diarrhea with Augmentin SNOMED Code(s): 745945205072882 - Recommendations Recommendations: d/w ortho team concern for contamination of hardware wound culture positive for Klebsiella aerogenes but I"m also concerned for skin chad contamination since wound dehiscence was deep will treat with IV rocephin 2 grams daily and Vancomycin 750 mg IV bid ( patient was on 1 gram q12 but her trough was 15 and i'm aiming for a trough of 10) duration of treatment 2 weeks will need to monitor weekly cbc, Bun/Cr, ESR, CRP and vancomycin trough duratoin of treatment likely 2 weeks IV and maybe followed by 2 weeks or oral bactrim if she continues to improve monitor labs and for drug toxicity patient lives alone and she will go to SNF I had a long discussion with the patient and she is agreeable Past Med Surg Social Fam HX - Past Medical History Medical history: GERD, hypertension, migraine Additional medical history: depression Psychiatric history: anxiety, depression - Past Surgical History Surgical History: breast surgery, cholecystectomy, hysterectomy, orthopedic, other, other Additional surgical history: right shoulder. breast reducation. right total knee - Social History Smoking Status: Former smoker Smokeless Tobacco Status: No Alcohol use: none Drug use: none Consult Discharge Plan - Plan Referrals: Eboni Arriaga CHIEF SALES OFFICER [Primary Care Provider] -
--- NOTE | 2019-02-24 14:13 | Internal Med Progress Note ---
Hospitalist Progress Note - Encounter Date of Encounter: 02/24/19 Time of Encounter: 10:45 - Subjective Interval History: Seen at bedside. Culture was taken from the superficial wound are growing Klebsiella and the patient was told that she will need IV antibiotics for 6 week, patient is very disturbed and emotional because of this news. Otherwise, she denies fever, chills, rigors. Denies any new complaints. No acute overnight events. - Exam Vitals: Temp Pulse Resp BP Pulse Ox 97.6 F 76 16 120/73 99 02/24/19 07:00 02/24/19 07:00 02/24/19 07:00 02/24/19 07:00 02/24/19 07:00 Exam: General: Alert and oriented. Skin:No rash, no lesions. Cardiovascular:Normal S1 & S2, no rubs, murmurs or gallops. No JVD. Pulse regular. Lungs:Normal breath sounds, no wheezes or crackles. Abdomen:Soft, non-tender, no rigidity. Extremities: right knee skin stapled with no discharge. No erythema or tenderness or warmth apprecaited Neurological:Normal cognition and motor skills. Pulses:Carotid and radial pulses normal +2. - Assessment and Plan (1) Fall Current Visit: Yes Status: Acute Assessment and Plan: -HAd Reports mechanical fall at home. -CT scan of the head was negative. -Complains of pain following fall to lower back and right lower extremity including opening up of her recent surgical incision. Underwent right robotic- assisted total knee replacement at [facility] on 02/01/19. -ER obtained x-rays of the lumbar spine which showed some degenerative changes and atherosclerotic cyst disease but no evidence of fracture or malalignment, right hip which showed no acute fracture or subluxation, and right knee showed no fracture with intact hardware and soft tissue defect with some subcutaneous air noted. -ortho was consulted who did Right knee irrigation debridement extensor mechanism repair and wound closure. -Pain improved following pain medications. Continue pain control with PRN pain medications. Wound culutures showing Klebsiella aerogenes sesitive to multiple antibioitcs. -Will continue on zosyn and defer the decision to ID for the antibiotics. D/C vancomycin. -Pt may need IV antibiotics for 6 weeks, will consult ID for final recommendations. -If needed PICC with IV antibiotics, pt might need to to SNF for continued care. (2) Surgical wound dehiscence Current Visit: Yes Status: Acute Assessment and Plan: -Right total knee replacement wound dehiscence following fall. -Plan as stated above. (3) Hypertension Current Visit: No Status: Chronic Assessment and Plan: -Continue home medications.l. (4) Depression with anxiety Current Visit: No Status: Chronic Assessment and Plan: -Continue home medications. (5) GERD (gastroesophageal reflux disease) Current Visit: No Status: Chronic Assessment and Plan: -Continue home medications. (6) Constipation Current Visit: Yes Status: Acute Assessment and Plan: -Continue colace, senna and milk of magnesia (7) Morbid obesity with BMI of 40.0-44.9, adult Current Visit: Yes Status: Acute Assessment and Plan: Morbidly obese with the BMI of 40.1. Encouraged to lose weight with consuming less calories MAy benefit from outpaitent referral to obesity clinic. - Time Spent with Patient Total time spent is greater than 50% in coordination of care (as documented) at patient's floor/unit and/or counseling patient: Internal Medicine: Result - Labs CBC & Chem 7: 02/24/19 06:19 02/24/19 06:19 Labs: Short CBC 02/24/19 Range/Units 06:19 WBC 7.3 (4.3-11.1) K/mcL Hgb 10.8 L (11.5-15.4) g/dL Hct 33.5 L (35.3-44.9) % Plt Count 372 (140-400) K/mcL Neutrophils # 4.0 (1.6-8.9) K/mcL BMP 02/24/19 06:19 Sodium 143 Potassium 3.7 Chloride 104 Carbon Dioxide 31 H BUN 16 Creatinine 0.93 Glucose 109 H Calcium 8.8 Consult Discharge Plan - Plan Referrals: Eboni Arriaga, REDIPPER [Primary Care Provider] - (1) Fall Qualifiers: Encounter type: initial encounter Qualified Code(s): W19.XXXA - Unspecified fall, initial encounter (2) Surgical wound dehiscence Qualifiers: Encounter type: initial encounter Qualified Code(s): T81.31XA - Disruption of external operation (surgical) wound, not elsewhere classified, initial encounter (3) Hypertension Qualifiers: Hypertension type: essential hypertension Qualified Code(s): I10 - Essential (primary) hypertension (5) GERD (gastroesophageal reflux disease) Qualifiers: Esophagitis presence: esophagitis presence not specified Qualified Code(s): K21.9 - Gastro-esophageal reflux disease without esophagitis (6) Constipation Qualifiers: Constipation type: drug induced constipation Qualified Code(s): K59.03 - Drug induced constipation
[2019-02-24] MEDS ORDERED: *HR* LORazepam 0.5 MG TABLET PO ONE (17:13)
[2019-02-24] MEDS ORDERED: *HR* LORazepam 0.5 MG TABLET PO PRN (19:15)
[2019-02-25] MEDS: Piperacillin/Tazobactam 3.375 GM in 0.9 % Sodium Chloride Mini Bag 100 ML IVPB SCH ×3 (04:06→18:13)
[2019-02-25 04:41] LABS: BUN/Creatinine Ratio 18 (6-26); Blood Urea Nitrogen 15 mg/dL (8-23); Calcium 8.7 mg/dL (8.6-10.3); Carbon Dioxide 29 mEq/L (23-29); Chloride 104 mEq/L (98-107); Glucose 122 mg/dL (70-105); Osmolality,Calculated 294 (280-300); Potassium 3.6 mEq/L (3.5-5.1); Sodium 141 mEq/L (136-145); eGFR For African Americans > 60 (> 60); eGFR For Non-African Americans > 60 (> 60)
[2019-02-25] MEDS: *HR* Heparin 5,000 UNIT/ML VIAL SQ SCH ×3 (06:28→21:06)
--- NOTE | 2019-02-25 07:57 | Orthopedics Progress Note ---
Date of Encounter: 02/25/19 Time of Encounter: 07:56 Subjective Interval history: Patient was seen this morning doing well without complaints. Afebrile vital signs stable. Operative extremity: Neurovascularly intact Dressing clean dry and intact Calves nontender Assessment and plan: Continue with postoperative care Patient to be discharged to rehabilitation Objective Vital signs: Vital Signs Temp Pulse Resp BP Pulse Ox 02/25/19 03:53 97.5 F L 77 17 131/77 95 02/24/19 22:11 98.0 F 71 17 137/78 99 02/24/19 20:59 99 02/24/19 19:13 98.4 F 76 18 125/66 98 Intake and Output 02/24/19 02/24/19 02/25/19 15:59 23:59 07:59 Intake Total 600 / 700 350 / 350 Output Total 800 / 800 Balance -200 / -100 350 / 350 Intake: IV Fluids 600 / 700 350 / 350 Zosyn 3.375 GM In 0.9 % Sodium 100 / 200 100 / 100 Chloride (Mini-Bag +) 100 ML @ 25 mls/hr IVPB Q8H [facility] Rx#: [id number] Vancocin 1,000 MG In 0.9 % 250 / 250 Sodium Chloride 250 ML @ 166. 667 mls/hr IVPB Q12H [facility] Rx#: [id number] Vancocin 750 MG In 0.9 % Sodium 250 / 250 250 / 250 Chloride 250 ML @ 250 mls/hr IVPB Q12H [facility] Rx#:[id number] Output: Urine 800 / 800 Other: Weight 103.1 kg Patient Weight 02/25/19 23:59 Weight 103.1 kg - Labs CBC & BMP: 02/24/19 06:19 02/25/19 04:00 Labs: Abnormal lab results WBC 11.5 K/mcL (4.3-11.1) H 02/22/19 00:50 RBC 3.80 M/mcL (3.82-4.97) L 02/23/19 05:18 Hgb 10.8 g/dL (11.5-15.4) L 02/24/19 06:19 Hct 33.5 % (35.3-44.9) L 02/24/19 06:19 RDW 14.6 % (11.5-14.5) H 02/24/19 06:19 Plt Count 413 K/mcL (140-400) H 02/22/19 00:50 Potassium 3.3 mEq/L (3.5-5.1) L 02/22/19 01:00 Carbon Dioxide 31 mEq/L (23-29) H 02/24/19 06:19 Est GFR (Non-Af Amer) 57 (> 60) L 02/23/19 05:18 Glucose 122 mg/dL (70-105) H 02/25/19 04:00 POC Glucose 117 mg/dL (70-99) H 02/22/19 05:27 Vancomycin Trough 15 mcg/mL (5-10) H 02/23/19 11:47 Consult Discharge Plan - Plan Referrals: Eboni Arriaga, MANUFACTURING ENGINEER MACHINING [Primary Care Provider] -
[2019-02-25] MEDS: Gabapentin 300 MG CAPSULE PO SCH ×2 (10:08→21:06)
[2019-02-25] MEDS: Multivit/Ca/Min/Fe/FA 1 TAB TABLET PO SCH (10:08)
[2019-02-25] MEDS: Ascorbic Acid 500 MG TABLET PO SCH ×2 (10:09→18:13)
[2019-02-25] MEDS: Aspirin Enteric Coated 81 MG Tablet PO SCH (10:09)
--- NOTE | 2019-02-25 11:34 | Infectious Disease Progress No ---
ID Progress Note Date of Encounter: 02/25/19 Time of Encounter: 11:32 - Subjective Subjective: Patient seen and examined. Clinically doing great. Continues to have some loose stool still soft and was stopped. No chest pain no shortness of breath no nausea no vomiting. Knee pain significantly improved. Vital signs noted Cultures reviewed Labs noted - Objective CBC & Chem 7: 02/24/19 06:19 02/25/19 04:00 - Exam Vitals: Temp Pulse Resp BP Pulse Ox 98.3 F 76 16 122/74 99 02/25/19 08:27 02/25/19 08:27 02/25/19 08:27 02/25/19 08:27 02/25/19 08:27 Exam: GENERAL: Comfortable. Laying in bed NAD HEENT: RICARDO, EOMI LUNGS: Good air sounds bilaterally, no wheezing or rhonchi CV: RRR, S1 S2 ABDOMEN: Soft, nontender, + bowel sounds EXT: Adequate perfusion. Right knee surgical wound with no drainage no erythema. PICC line right upper extremity. NEURO: A&OX3; no focal deficit - Assessment and Plan (1) Status post total right knee replacement Current Visit: No Status: Acute s/p TKA right on 02/01/19 SNOMED Code(s): 5324935925912, [id number] (2) Surgical wound dehiscence Current Visit: Yes Status: Acute s/p fall at home with trauma to R knee s/p TKA R 02/01/19 wound dehiscence s/p Right knee irrigation debridement extensor mechanism repair and wound closure 02/22/19 superficial wound culture positive for pansensitive Klebsiella aerogenes intra op cultures not finalized yet Qualifiers: Encounter type: initial encounter Qualified Code(s): T81.31XA - Disruption of external operation (surgical) wound, not elsewhere classified, initial encounter SNOMED Code(s): 70009996 (3) Diarrhea Current Visit: Yes Status: Acute could be related to antibiotics C. difficile negative Start antibiotics. SNOMED Code(s): 47874731 (4) HTN (hypertension) Current Visit: No Status: Chronic Qualifiers: Hypertension type: unspecified Qualified Code(s): I10 - Essential (primary) hypertension SNOMED Code(s): 18464872 (5) Depression Current Visit: No Status: Chronic Qualifiers: Depression Type: unspecified Qualified Code(s): F32.9 - Major depressive disorder, single episode, unspecified SNOMED Code(s): 68338764 (6) Fall Current Visit: Yes Status: Acute Qualifiers: Encounter type: initial encounter Qualified Code(s): W19.XXXA - Unspecified fall, initial encounter SNOMED Code(s): 9609436, 404215983 (7) Depression with anxiety Current Visit: No Status: Chronic SNOMED Code(s): 233127319 (8) Morbid obesity with BMI of 40.0-44.9, adult Current Visit: Yes Status: Acute SNOMED Code(s): 820270692, 50611487209176 (9) Drug allergy, antibiotic Current Visit: Yes Status: Acute no true allergy diarrhea with Augmentin SNOMED Code(s): 787854165130288 Consult Discharge Plan - Plan Referrals: Eboni Arriaga, INSURANCE FOLLOW UP REP [Primary Care Provider] -
[2019-02-25] MEDS: Ondansetron 4 MG/2 ML VIAL IVP PRN (15:02)
--- NOTE | 2019-02-25 15:33 | Internal Med Progress Note ---
Hospitalist Progress Note - Encounter Date of Encounter: 02/25/19 Time of Encounter: 09:45 - Subjective Interval History: Patient seen at bedside. Denies chest pain, shortness of breath, palpitations. Denies fever, chills, rigors. Likley to be dsicharged tomorrow. No acute event overnight. - Exam Vitals: Temp Pulse Resp BP Pulse Ox 98.3 F 76 16 122/74 99 02/25/19 08:27 02/25/19 08:27 02/25/19 08:27 02/25/19 08:27 02/25/19 08:27 Exam: General: Alert and oriented. Skin:No rash, no lesions. Cardiovascular:Normal S1 & S2, no rubs, murmurs or gallops. No JVD. Pulse regular. Lungs:Normal breath sounds, no wheezes or crackles. Abdomen:Soft, non-tender, no rigidity. Extremities: right knee skin stapled with no discharge. No erythema or ten derness or warmth apprecaited Neurological:Normal cognition and motor skills. Pulses:Carotid and radial pulses normal +2. - Assessment and Plan (1) Fall Current Visit: Yes Status: Acute Assessment and Plan: -HAd Reports mechanical fall at home. -CT scan of the head was negative. -Complains of pain following fall to lower back and right lower extremity including opening up of her recent surgical incision. Underwent right robotic- assisted total knee replacement at [facility] on 02/01/19. -ER obtained x-rays of the lumbar spine which showed some degenerative changes and atherosclerotic cyst disease but no evidence of fracture or malalignment, right hip which showed no acute fracture or subluxation, and right knee showed no fracture with intact hardware and soft tissue defect with some subcutaneous air noted. -ortho was consulted who did Right knee irrigation debridement extensor mechanism repair and wound closure. -Pain improved following pain medications. Continue pain control with PRN pain medications. Wound culutures showing Klebsiella aerogenes sesitive to multiple antibioitcs. -Currently on vancomycin and zosyn, ID on board. -PICC line has been placed -ID to decide post discharge antibiotics (2) Surgical wound dehiscence Current Visit: Yes Status: Acute Assessment and Plan: -Right total knee replacement wound dehiscence following fall. -Plan as stated above. (3) Hypertension Current Visit: No Status: Chronic Assessment and Plan: -Continue home medications.l. (4) Depression with anxiety Current Visit: No Status: Chronic Assessment and Plan: -Continue home medications. (5) GERD (gastroesophageal reflux disease) Current Visit: No Status: Chronic Assessment and Plan: -Continue home medications. (6) Constipation Current Visit: Yes Status: Acute Assessment and Plan: -Continue colace, senna and milk of magnesia (7) Morbid obesity with BMI of 40.0-44.9, adult Current Visit: Yes Status: Acute Assessment and Plan: Morbidly obese with the BMI of 40.1. Encouraged to lose weight with consuming less calories MAy benefit from outpaitent referral to obesity clinic. (8) Diarrhea Current Visit: Yes Status: Acute Assessment and Plan: Likely due to antibiotics C. Diff negatvie - Time Spent with Patient Total time spent is greater than 50% in coordination of care (as documented) at patient's floor/unit and/or counseling patient: Internal Medicine: Result - Labs CBC & Chem 7: 02/24/19 06:19 02/25/19 04:00 Labs: BMP 02/25/19 04:00 Sodium 141 Potassium 3.6 Chloride 104 Carbon Dioxide 29 BUN 15 Creatinine 0.82 Glucose 122 H Calcium 8.7 Consult Discharge Plan - Plan Referrals: Eboni Arriaga, CABLE MECHANIC [Primary Care Provider] - (1) Fall Qualifiers: Encounter type: initial encounter Qualified Code(s): W19.XXXA - Unspecified fall, initial encounter (2) Surgical wound dehiscence Qualifiers: Encounter type: initial encounter Qualified Code(s): T81.31XA - Disruption of external operation (surgical) wound, not elsewhere classified, initial encounter (3) Hypertension Qualifiers: Hypertension type: essential hypertension Qualified Code(s): I10 - Essential (primary) hypertension (5) GERD (gastroesophageal reflux disease) Qualifiers: Esophagitis presence: esophagitis presence not specified Qualified Code(s): K21.9 - Gastro-esophageal reflux disease without esophagitis (6) Constipation Qualifiers: Constipation type: drug induced constipation Qualified Code(s): K59.03 - Drug induced constipation (8) Diarrhea Qualifiers: Diarrhea type: unspecified type Qualified Code(s): R19.7 - Diarrhea, unspecified
[2019-02-26] MEDS: Piperacillin/Tazobactam 3.375 GM in 0.9 % Sodium Chloride Mini Bag 100 ML IVPB SCH ×2 (02:51→11:51)
[2019-02-26 03:03] LABS: Basophils % 0.5 %; Eosinophils # 0.3 K/mcL (0.0-0.6); Eosinophils % 3.9 %; Hematocrit 31.2 % (35.3-44.9); Immature Granulocytes % 0.3 % (0-4); Lymphocytes # 2.5 K/mcL (0.6-4.6); Mean Corpuscular HGB Conc 32.1 g/dL (31.6-35.5); Mean Corpuscular Hemoglobin 28.7 pg (28.0-33.3); Mean Corpuscular Volume 89.4 fL (83.0-100.0); Mean Platelet Volume 9.6 fL (9.4-12.4); Monocytes # 0.7 K/mcL (0.0-1.3); Platelet Count 343 K/mcL (140-400); Red Blood Count 3.49 M/mcL (3.82-4.97); Red Cell Distribution Width 14.6 % (11.5-14.5); Segmented Neutrophils % 58.3 %; White Blood Count 8.7 K/mcL (4.3-11.1)
[2019-02-26 03:18] LABS: BUN/Creatinine Ratio 16 (6-26); Blood Urea Nitrogen 16 mg/dL (8-23); Carbon Dioxide 30 mEq/L (23-29); Chloride 104 mEq/L (98-107); Glucose 118 mg/dL (70-105); Osmolality,Calculated 290 (280-300); Potassium 3.6 mEq/L (3.5-5.1); Sodium 139 mEq/L (136-145); eGFR For African Americans > 60 (> 60); eGFR For Non-African Americans 56 (> 60)
[2019-02-26] MEDS: *HR* Heparin 5,000 UNIT/ML VIAL SQ SCH ×3 (05:21→21:04)
[2019-02-26] MEDS: Multivit/Ca/Min/Fe/FA 1 TAB TABLET PO SCH (07:36)
[2019-02-26] MEDS: Ascorbic Acid 500 MG TABLET PO SCH ×2 (07:36→15:56)
[2019-02-26] MEDS: Aspirin Enteric Coated 81 MG Tablet PO SCH (07:36)
[2019-02-26] MEDS: Gabapentin 300 MG CAPSULE PO SCH ×2 (07:37→20:11)
--- NOTE | 2019-02-26 15:25 | Infectious Disease Progress No ---
ID Progress Note Date of Encounter: 02/26/19 Time of Encounter: 15:24 - Subjective Subjective: Patient seen and examined. Clinically doing great. Continues to have some loose stool still soft and was stopped. No chest pain no shortness of breath no nausea no vomiting. Knee pain significantly improved. Vital signs noted Cultures reviewed Labs noted - Objective CBC & Chem 7: 02/26/19 02:45 02/26/19 02:45 - Exam Vitals: Temp Pulse Resp BP Pulse Ox 97.5 F L 72 18 114/71 96 02/26/19 07:19 02/26/19 07:19 02/26/19 07:19 02/26/19 07:19 02/26/19 07:52 Exam: GENERAL: Comfortable. Laying in bed NAD HEENT: RICARDO, EOMI LUNGS: Good air sounds bilaterally, no wheezing or rhonchi CV: RRR, S1 S2 ABDOMEN: Soft, nontender, + bowel sounds EXT: Right knee surgical wound looks good with no drainage or erythema or signs of infection NEURO: A&OX3; no focal deficit - Assessment and Plan (1) Status post total right knee replacement Current Visit: No Status: Acute s/p TKA right on 02/01/19 SNOMED Code(s): 9386692685981, 7849843665180 (2) Surgical wound dehiscence Current Visit: Yes Status: Acute s/p fall at home with trauma to R knee s/p TKA R 02/01/19 wound dehiscence s/p Right knee irrigation debridement extensor mechanism repair and wound closure 02/22/19 superficial wound culture positive for pansensitive Klebsiella aerogenes Qualifiers: Encounter type: initial encounter Qualified Code(s): T81.31XA - Disruption of external operation (surgical) wound, not elsewhere classified, initial encounter SNOMED Code(s): 42703972 (3) Diarrhea Current Visit: Yes Status: Acute could be related to antibiotics C. difficile negative Qualifiers: Diarrhea type: unspecified type Qualified Code(s): R19.7 - Diarrhea, unspecified SNOMED Code(s): 27115925 (4) HTN (hypertension) Current Visit: No Status: Chronic Qualifiers: Hypertension type: unspecified Qualified Code(s): I10 - Essential (primary) hypertension SNOMED Code(s): 78348262 (5) Depression Current Visit: No Status: Chronic Qualifiers: Depression Type: unspecified Qualified Code(s): F32.9 - Major depressive disorder, single episode, unspecified SNOMED Code(s): 51348345 (6) Fall Current Visit: Yes Status: Acute Qualifiers: Encounter type: initial encounter Qualified Code(s): W19.XXXA - Unspecified fall, initial encounter SNOMED Code(s): 5388893, 063756329 (7) Depression with anxiety Current Visit: No Status: Chronic SNOMED Code(s): 935183906 (8) Morbid obesity with BMI of 40.0-44.9, adult Current Visit: Yes Status: Acute SNOMED Code(s): 576990198, 10047676448615 (9) Drug allergy, antibiotic Current Visit: Yes Status: Acute no true allergy diarrhea with Augmentin SNOMED Code(s): 646497811540981 - Recommendations Recommendations: Continue vancomycin 750 mg IV every 12 hours with a call vancomycin trough around 10 Continue Rocephin 2 g IV every 24 hours Duration of treatment through 03/08/2019 After that we will treat with Bactrim for 2 weeks by mouth Patient has a PICC line placed Weekly CBC, BUN/creatinine, ESR, CRP and vancomycin trough while on IV antibi otics Consult Discharge Plan - Plan Referrals: Eboni Arriaga, PERSONAL SECURITY SPECIALIST [Primary Care Provider] -
[2019-02-26] MEDS: cefTRIAXone 2,000 MG in Water for inj. (sterile) 20 ML IVP SCH (15:55)
--- NOTE | 2019-02-26 16:07 | Internal Med Progress Note ---
Hospitalist Progress Note - Encounter Date of Encounter: 02/26/19 Time of Encounter: 11:00 - Subjective Interval History: Patient seen at bedside. Denies chest pain, shortness of breath, palpitations. Denies fever, chills, rigors. Awaiting placement. No acute event overnight. - Exam Vitals: Temp Pulse Resp BP Pulse Ox 97.5 F L 72 18 114/71 96 02/26/19 07:19 02/26/19 07:19 02/26/19 07:19 02/26/19 07:02/26/19 07:52 Exam: General: Alert and oriented. Skin:No rash, no lesions. Cardiovascular:Normal S1 & S2, no rubs, murmurs or gallops. No JVD. Pulse regular. Lungs:Normal breath sounds, no wheezes or crackles. Abdomen:Soft, non-tender, no rigidity. Extremities: right knee skin stapled with no discharge. No erythema or tend erness or warmth apprecaited Neurological:Normal cognition and motor skills. Pulses:Carotid and radial pulses normal +2. - Assessment and Plan (1) Fall Current Visit: Yes Status: Acute Assessment and Plan: -HAd Reports mechanical fall at home. -Complains of pain following fall to lower back and right lower extremity including opening up of her recent surgical incision. -x-rays of the lumbar spine which showed some degenerative changes and atherosclerotic cyst disease but no evidence of fracture or malalignment, right hip which showed no acute fracture or subluxation, and right knee showed no fracture with intact hardware and soft tissue defect with some subcutaneous air noted. -ortho was consulted who did Right knee irrigation debridement extensor mechanism repair and wound closure. -Pain improved following pain medications. Continue pain control with PRN pain medications. Wound culutures showing Klebsiella aerogenes sesitive to multiple antibioitcs. -Currently on vancomycin and ceftriaxone, ID on board. -PICC line has been placed -TO eb dsicahrged on IV vancomycin and ceftriaxone, to be cntinued until 03/08, then sweitched to bactrim for 2 weeks. -Awaiting placement (2) Surgical wound dehiscence Current Visit: Yes Status: Acute Assessment and Plan: -Right total knee replacement wound dehiscence following fall. -Plan as stated above. (3) Hypertension Current Visit: No Status: Chronic Assessment and Plan: -Continue home medications.l. (4) Depression with anxiety Current Visit: No Status: Chronic Assessment and Plan: -Continue home medications. (5) GERD (gastroesophageal reflux disease) Current Visit: No Status: Chronic Assessment and Plan: -Continue home medications. (6) Constipation Current Visit: Yes Status: Acute Assessment and Plan: -Continue colace, senna and milk of magnesia (7) Morbid obesity with BMI of 40.0-44.9, adult Current Visit: Yes Status: Acute Assessment and Plan: Morbidly obese with the BMI of 40.1. Encouraged to lose weight with consuming less calories MAy benefit from outpaitent referral to obesity clinic. (8) Diarrhea Current Visit: Yes Status: Acute Assessment and Plan: Likely due to antibiotics C. Diff negatvie - Time Spent with Patient Total time spent is greater than 50% in coordination of care (as documented) at patient's floor/unit and/or counseling patient: Internal Medicine: Result - Labs CBC & Chem 7: 02/26/19 02:45 02/26/19 02:45 Labs: Short CBC 02/26/19 Range/Units 02:45 WBC 8.7 (4.3-11.1) K/mcL Hgb 10.0 L (11.5-15.4) g/dL Hct 31.2 L (35.3-44.9) % Plt Count 343 (140-400) K/mcL Neutrophils # 5.0 (1.6-8.9) K/mcL BMP 02/26/19 02:45 Sodium 139 Potassium 3.6 Chloride 104 Carbon Dioxide 30 H BUN 16 Creatinine 1.00 Glucose 118 H Calcium 9.0 Consult Discharge Plan - Plan Referrals: Eboni Arriaga, PALLET SORTER [Primary Care Provider] - (1) Fall Qualifiers: Encounter type: initial encounter Qualified Code(s): W19.XXXA - Unspecified fall, initial encounter (2) Surgical wound dehiscence Qualifiers: Encounter type: initial encounter Qualified Code(s): T81.31XA - Disruption of external operation (surgical) wound, not elsewhere classified, initial encounter (3) Hypertension Qualifiers: Hypertension type: essential hypertension Qualified Code(s): I10 - Essential (primary) hypertension (5) GERD (gastroesophageal reflux disease) Qualifiers: Esophagitis presence: esophagitis presence not specified Qualified Code(s): K21.9 - Gastro-esophageal reflux disease without esophagitis (6) Constipation Qualifiers: Constipation type: drug induced constipation Qualified Code(s): K59.03 - Drug induced constipation (8) Diarrhea Qualifiers: Diarrhea type: unspecified type Qualified Code(s): R19.7 - Diarrhea, unspecified
[2019-02-26] MEDS: Ondansetron 4 MG/2 ML VIAL IVP PRN (20:11)
[2019-02-27 02:30] LABS: Hematocrit 30.8 % (35.3-44.9); Hemoglobin 9.8 g/dL (11.5-15.4); Mean Corpuscular HGB Conc 31.8 g/dL (31.6-35.5); Mean Corpuscular Hemoglobin 28.7 pg (28.0-33.3); Mean Corpuscular Volume 90.1 fL (83.0-100.0); Mean Platelet Volume 9.5 fL (9.4-12.4); Platelet Count 330 K/mcL (140-400); Red Blood Count 3.42 M/mcL (3.82-4.97); Red Cell Distribution Width 14.8 % (11.5-14.5)
[2019-02-27 02:49] LABS: BUN/Creatinine Ratio 17 (6-26); Blood Urea Nitrogen 18 mg/dL (8-23); Calcium 8.8 mg/dL (8.6-10.3); Carbon Dioxide 28 mEq/L (23-29); Chloride 102 mEq/L (98-107); Glucose 114 mg/dL (70-105); Osmolality,Calculated 291 (280-300); Potassium 3.7 mEq/L (3.5-5.1); Sodium 139 mEq/L (136-145); eGFR For African Americans > 60 (> 60); eGFR For Non-African Americans 53 (> 60)
[2019-02-27] MEDS: *HR* Heparin 5,000 UNIT/ML VIAL SQ SCH ×3 (05:44→20:35)
[2019-02-27] MEDS: Ondansetron 4 MG/2 ML VIAL IVP PRN (08:33)
[2019-02-27] MEDS: Gabapentin 300 MG CAPSULE PO SCH ×2 (08:33→20:35)
[2019-02-27] MEDS: Multivit/Ca/Min/Fe/FA 1 TAB TABLET PO SCH (08:34)
[2019-02-27] MEDS: Ascorbic Acid 500 MG TABLET PO SCH ×2 (08:35→16:04)
[2019-02-27] MEDS: Aspirin Enteric Coated 81 MG Tablet PO SCH (08:35)
--- NOTE | 2019-02-27 10:24 | Event Note ---
Date of Encounter: 02/25/19 Time of Encounter: 12:45 POD#3 s/p Right knee irrigation debridement extensor mechanism repair and wound closure [Right knee wound dehiscence with extensor mechanism injury] 02/22/19 Patient seen at bedside. A&Ox3 Dressing and incision c/d/i TROM brace in locked extension in place with appropriate fit. No calf tenderness, erythema, or warmth. Neurovascularly intact b/l LE. Labwork, vitals, and medications reviewed. Pain control: Adequate Participating in therapy. All questions and concerns addressed. Educated on use of incentive spirometer, ambulation, and hydration. Patient educated on post-operative restrictions and care. Addressed: AWAITING CULTURES - PRELIM superficial demonstrate Klebsiella aerogenes. Sensitivity report reviewed. Given that patient had disruption of wound through capsule with extensor mechanism injury, concern for joint infection potential exists. patient will require intermediate term IV antibiotics of 6weeks. PICC team consulted for placement. ID consultation requested for assistance in appropriate antibiotic selection. Personally spoke with Dr. Otero re: patient's status and he agrees to see patient. WBAT in brace in locked extension with walker for stability Brace at all times with wheels to either side of knee NO knee motion Remove brace for hygiene only - spot clean only - do not submerge brace. Patient course and disposition discussed with Dr. Mason D/C plan:ECF for IV antibiotic administration.
--- NOTE | 2019-02-27 10:26 | Event Note ---
Date of Encounter: 02/26/19 Time of Encounter: 13:00 POD#4 s/p Right knee irrigation debridement extensor mechanism repair and wound closure [Right knee wound dehiscence with extensor mechanism injury] 02/22/19 Patient seen at bedside. She states she is very pleased with her care here. A&Ox3 Dressing and incision c/d/i TROM brace in locked extension in place with appropriate fit. No calf tenderness, erythema, or warmth. Neurovascularly intact b/l LE. Labwork, vitals, and medications reviewed. Pain control: Adequate Participating in therapy. All questions and concerns addressed. Educated on use of incentive spirometer, ambulation, and hydration. Patient educated on post-operative restrictions and care. Addressed: AWAITING CULTURES - PRELIM superficial demonstrate Klebsiella aerogenes. Sensitivity report reviewed. Given that patient had disruption of wound through capsule with extensor mechanism injury, concern for joint infection potential exists. patient will require intermediate term IV antibiotics of 6weeks. PICC team consulted for placement. ID consultation requested for assistance in appropriate antibiotic selection. ID recommendations appreciated. WBAT in brace in locked extension with walker for stability Brace at all times with wheels to either side of knee NO knee motion Remove brace for hygiene only - spot clean only - do not submerge brace. Patient course and disposition discussed with Dr. Mason D/C plan: ECF for IV antibiotic administration when authorized
--- NOTE | 2019-02-27 11:59 | Internal Med Progress Note ---
Hospitalist Progress Note - Encounter Date of Encounter: 02/27/19 Time of Encounter: 10:15 - Subjective Interval History: Seen at bedside. Had 3 episodes of diarrhea today in the morning. Feeling below par. Denies any fever, chills, rigors. She says that she is feeling tired because of her diarrhea. Denies any chest pain or shortness of breath. No other overnight events. Awaiting placement. Currently on IV antibiotics. - Exam Vitals: Temp Pulse Resp BP Pulse Ox 97.9 F 70 15 117/72 99 02/27/19 08:23 02/27/19 08:23 02/27/19 08:23 02/27/19 08:23 02/27/19 08:23 Exam: General: Alert and oriented. Skin:No rash, no lesions. Cardiovascular:Normal S1 & S2, no rubs, murmurs or gallops. No JVD. Pulse regular. Lungs:Normal breath sounds, no wheezes or crackles. Abdomen:Soft, non-tender, no rigidity. Extremities: right knee skin stapled with no discharge. No erythema or tenderness or warmth apprecaited Neurological:Normal cognition and motor skills. - Assessment and Plan (1) Fall Current Visit: Yes Status: Acute Assessment and Plan: -HAd Reported mechanical fall at home. -Complains of pain following fall to lower back and right lower extremity including opening up of her recent surgical incision. -x-rays of the lumbar spine which showed some degenerative changes and atherosclerotic cyst disease but no evidence of fracture or malalignment, right hip which showed no acute fracture or subluxation, and right knee showed no fracture with intact hardware and soft tissue defect with some subcutaneous air noted. -ortho was consulted who did Right knee irrigation debridement extensor mechanism repair and wound closure on -Pain improved following pain medications. Continue pain control with PRN pain medications. Wound culutures showing Klebsiella aerogenes sesitive to multiple antibioitcs. -Currently on vancomycin and ceftriaxone, ID on board. -PICC line has been placed -TO be dsicahrged on IV vancomycin and ceftriaxone, to be cntinued until 03/08, then sweitched to bactrim for 2 weeks. -Awaiting placement. (2) Surgical wound dehiscence Current Visit: Yes Status: Acute Assessment and Plan: -Right total knee replacement wound dehiscence following fall. -Plan as stated above. (3) Hypertension Current Visit: No Status: Chronic Assessment and Plan: -Continue home medications. -BP stable (4) Depression with anxiety Current Visit: No Status: Chronic Assessment and Plan: -Continue home medications. (5) GERD (gastroesophageal reflux disease) Current Visit: No Status: Chronic Assessment and Plan: -Continue home medications. (6) Constipation Current Visit: Yes Status: Acute Assessment and Plan: -Currenrly having diarrhea -D/C all laxativees (7) Morbid obesity with BMI of 40.0-44.9, adult Current Visit: Yes Status: Acute Assessment and Plan: Morbidly obese with the BMI of 40.1. Encouraged to lose weight with consuming less calories MAy benefit from outpaitent referral to obesity clinic. (8) Diarrhea Current Visit: Yes Status: Acute Assessment and Plan: Likely due to antibiotics C. Diff negatvie 02/25 HOld lasix, advise patient to keep herself hydrated - Time Spent with Patient Total time spent is greater than 50% in coordination of care (as documented) at patient's floor/unit and/or counseling patient: Internal Medicine: Result - Labs CBC & Chem 7: 02/27/19 02:15 02/27/19 02:15 Labs: Short CBC 02/27/19 Range/Units 02:15 WBC 9.0 (4.3-11.1) K/mcL Hgb 9.8 L (11.5-15.4) g/dL Hct 30.8 L (35.3-44.9) % Plt Count 330 (140-400) K/mcL BMP 02/27/19 02:15 Sodium 139 Potassium 3.7 Chloride 102 Carbon Dioxide 28 BUN 18 Creatinine 1.05 Glucose 114 H Calcium 8.8 Consult Discharge Plan - Plan Referrals: Eboni Arriaga, FLASH WELDER [Primary Care Provider] - (1) Fall Qualifiers: Encounter type: initial encounter Qualified Code(s): W19.XXXA - Unspecified fall, initial encounter (2) Surgical wound dehiscence Qualifiers: Encounter type: initial encounter Qualified Code(s): T81.31XA - Disruption of external operation (surgical) wound, not elsewhere classified, initial encounter (3) Hypertension Qualifiers: Hypertension type: essential hypertension Qualified Code(s): I10 - Essential (primary) hypertension (5) GERD (gastroesophageal reflux disease) Qualifiers: Esophagitis presence: esophagitis presence not specified Qualified Code(s): K21.9 - Gastro-esophageal reflux disease without esophagitis (6) Constipation Qualifiers: Constipation type: drug induced constipation Qualified Code(s): K59.03 - Drug induced constipation (8) Diarrhea Qualifiers: Diarrhea type: unspecified type Qualified Code(s): R19.7 - Diarrhea, unspecified
[2019-02-27] MEDS: cefTRIAXone 2,000 MG in Water for inj. (sterile) 20 ML IVP SCH (16:03)
[2019-02-28 02:25] LABS: BUN/Creatinine Ratio 23 (6-26); Blood Urea Nitrogen 19 mg/dL (8-23); Calcium 9.3 mg/dL (8.6-10.3); Carbon Dioxide 28 mEq/L (23-29); Chloride 101 mEq/L (98-107); Glucose 107 mg/dL (70-105); Osmolality,Calculated 289 (280-300); Potassium 3.7 mEq/L (3.5-5.1); Sodium 138 mEq/L (136-145); eGFR For African Americans > 60 (> 60); eGFR For Non-African Americans > 60 (> 60)
[2019-02-28] MEDS: *HR* Heparin 5,000 UNIT/ML VIAL SQ SCH ×3 (05:56→21:21)
[2019-02-28] MEDS: Multivit/Ca/Min/Fe/FA 1 TAB TABLET PO SCH (11:20)
[2019-02-28] MEDS: Aspirin Enteric Coated 81 MG Tablet PO SCH (11:20)
[2019-02-28] MEDS: Gabapentin 300 MG CAPSULE PO SCH ×2 (11:20→21:20)
[2019-02-28] MEDS: Ascorbic Acid 500 MG TABLET PO SCH ×2 (11:21→18:29)
--- NOTE | 2019-02-28 13:52 | Internal Med Progress Note ---
Hospitalist Progress Note - Encounter Date of Encounter: 02/28/19 Time of Encounter: 13:47 - Subjective Interval History: Patient doing well this morning but complains of sore throat. Still waiting on insurance authorization for SNF transfer. - Exam Vitals: Temp Pulse Resp BP Pulse Ox 98.1 F 75 16 123/74 97 02/28/19 11:53 02/28/19 11:53 02/28/19 11:53 02/28/19 11:53 02/28/19 11:53 Exam: General: Ill-appearing and in no acute distress HEENT: No erythema of posterior pharynx. No exudates. Lymphatics: No mandibular or cervical lymphadenopathy Cardiovascular: RRR. No murmurs. No chest wall tenderness. Lungs: Clear to auscelltation bilaterally. Regular chest rise. Abdomen: Non-tender. No rebound or gaurding. Nl bowel sounds. Extremities: RLE with dressing in place, c/d/i Skin: No rahses, abrasions, or contusions. Nl cap refill. Psych: Nl attention. A&Ox3 Neuro: box toe maker II-XII intact. 5/5 strength. Sensation to light touch and pinprick intact. - Assessment and Plan (1) Surgical wound dehiscence Current Visit: Yes Status: Acute Assessment and Plan: Patient with history of recent right total knee replacement presented after a gr adual fall with infection and dehiscence of surgical wound site. -Ortho was consulted and patient is s/p Right knee irrigation debridement extensor mechanism repair and wound closure on -Wound culutures showing Klebsiella aerogenes sesitive to multiple antibioitcs. -ID consulted, recommend vancomycin and ceftriaxone until 03/08, then switch to Bactrim for 2 weeks -PICC line placed -Awaiting placement PLAN: - Vancomycin and ceftriaxone - Will discuss placement with after holiday weekend - PT/OT (2) Fall Current Visit: Yes Status: Acute Assessment and Plan: Ground-level fall at home. - Will be discharged to rehabilitation facility for PT OT (3) Morbid obesity with BMI of 40.0-44.9, adult Current Visit: Yes Status: Acute DVT Prophylaxis: Heparin Internal Medicine: Result - Labs CBC & Chem 7: 02/27/19 02:15 02/28/19 01:40 Labs: BMP 02/28/19 01:40 Sodium 138 Potassium 3.7 Chloride 101 Carbon Dioxide 28 BUN 19 Creatinine 0.83 Glucose 107 H Calcium 9.3 Consult Discharge Plan - Plan Referrals: Eboni rAriaga, SCIENTIFIC RECRUITER [Primary Care Provider] - (1) Surgical wound dehiscence Qualifiers: Encounter type: initial encounter Qualified Code(s): T81.31XA - Disruption of external operation (surgical) wound, not elsewhere classified, initial encounter (2) Fall Qualifiers: Encounter type: initial encounter Qualified Code(s): W19.XXXA - Unspecified fall, initial encounter
[2019-02-28] MEDS: cefTRIAXone 2,000 MG in Water for inj. (sterile) 20 ML IVP SCH (14:32)
[2019-02-28] MEDS: Loratadine 10 MG TABLET PO SCH (14:33)
--- NOTE | 2019-02-28 18:14 | Orthopedics Progress Note ---
Date of Encounter: 02/27/19 Time of Encounter: 11:05 Subjective Principal diagnosis: Wound dehiscence status post total knee arthroplasty Interval history: The patient is without complaints. Afebrile vital signs are stable. Incision is clean dry and intact. Neurovascularly intact with regard to bilateral lower extremities. Assessment :stable. Plan mobilize , continue antibiotics, continue analgesics, discharge planning. Objective Vital signs: Vital Signs Temp Pulse Resp BP Pulse Ox 02/28/19 17:06 98.4 F 79 16 107/71 97 02/28/19 11:53 98.1 F 75 16 123/74 97 02/28/19 07:12 97.9 F 69 18 136/77 96 02/28/19 04:42 97.9 F 81 20 137/78 95 02/27/19 23:04 97.8 F 79 20 140/69 98 02/27/19 20:47 99 02/27/19 19:05 98.1 F 88 20 133/72 99 Intake and Output 02/28/19 02/28/19 02/28/19 07:59 15:59 23:59 Intake Total 400 / 1120 720 / 1120 Balance 400 / 1120 720 / 1120 Intake: IV Fluids 250 / 250 Vancocin 750 MG In 0.9 % Sodium 250 / 250 Chloride 250 ML @ 250 mls/hr IVPB Q12H [facility] Rx#:[id number] Oral 150 / 870 720 / 870 Other: Meal Lunch Percent of Meal Consumed 100% # Voids 1 Weight 105.6 kg Patient Weight 02/28/19 23:59 Weight 105.6 kg - Labs CBC & BMP: 02/27/19 02:15 02/28/19 01:40 Labs: Abnormal lab results WBC 11.5 K/mcL (4.3-11.1) H 02/22/19 00:50 RBC 3.42 M/mcL (3.82-4.97) L 02/27/19 02:15 Hgb 9.8 g/dL (11.5-15.4) L 02/27/19 02:15 Hct 30.8 % (35.3-44.9) L 02/27/19 02:15 RDW 14.8 % (11.5-14.5) H 02/27/19 02:15 Plt Count 413 K/mcL (140-400) H 02/22/19 00:50 Potassium 3.3 mEq/L (3.5-5.1) L 02/22/19 01:00 Carbon Dioxide 30 mEq/L (23-29) H 02/26/19 02:45 Est GFR (Non-Af Amer) 53 (> 60) L 02/27/19 02:15 Glucose 107 mg/dL (70-105) H 02/28/19 01:40 POC Glucose 117 mg/dL (70-99) H 02/22/19 05:27 Vancomycin Trough 11 mcg/mL (5-10) H 02/27/19 00:17 Consult Discharge Plan - Plan Referrals: Eboni Arriaga, LAB TECHNOLOGIST [Primary Care Provider] -
--- NOTE | 2019-02-28 18:16 | Orthopedics Progress Note ---
Date of Encounter: 02/28/19 Time of Encounter: 18:15 Subjective Principal diagnosis: Wound dehiscence status post total knee arthroplasty Interval history: The patient is without complaints. Afebrile vital signs are stable. Incision is clean dry and intact. Neurovascularly intact with regard to bilateral lower extremities. Assessment :stable. Plan mobilize , continue antibiotics, continue analgesics, discharge planning. Objective Vital signs: Vital Signs Temp Pulse Resp BP Pulse Ox 02/28/19 17:06 98.4 F 79 16 107/71 97 02/28/19 11:53 98.1 F 75 16 123/74 97 02/28/19 07:12 97.9 F 69 18 136/77 96 02/28/19 04:42 97.9 F 81 20 137/78 95 02/27/19 23:04 97.8 F 79 20 140/69 98 02/27/19 20:47 99 02/27/19 19:05 98.1 F 88 20 133/72 99 Intake and Output 02/28/19 02/28/19 02/28/19 07:59 15:59 23:59 Intake Total 400 / 1120 720 / 1120 Balance 400 / 1120 720 / 1120 Intake: IV Fluids 250 / 250 Vancocin 750 MG In 0.9 % Sodium 250 / 250 Chloride 250 ML @ 250 mls/hr IVPB Q12H [facility] Rx#:[id number] Oral 150 / 870 720 / 870 Other: Meal Lunch Percent of Meal Consumed 100% # Voids 1 Weight 105.6 kg Patient Weight 02/28/19 23:59 Weight 105.6 kg - Labs CBC & BMP: 02/27/19 02:15 02/28/19 01:40 Labs: Abnormal lab results WBC 11.5 K/mcL (4.3-11.1) H 02/22/19 00:50 RBC 3.42 M/mcL (3.82-4.97) L 02/27/19 02:15 Hgb 9.8 g/dL (11.5-15.4) L 02/27/19 02:15 Hct 30.8 % (35.3-44.9) L 02/27/19 02:15 RDW 14.8 % (11.5-14.5) H 02/27/19 02:15 Plt Count 413 K/mcL (140-400) H 02/22/19 00:50 Potassium 3.3 mEq/L (3.5-5.1) L 02/22/19 01:00 Carbon Dioxide 30 mEq/L (23-29) H 02/26/19 02:45 Est GFR (Non-Af Amer) 53 (> 60) L 02/27/19 02:15 Glucose 107 mg/dL (70-105) H 02/28/19 01:40 POC Glucose 117 mg/dL (70-99) H 02/22/19 05:27 Vancomycin Trough 11 mcg/mL (5-10) H 02/27/19 00:17 Consult Discharge Plan - Plan Referrals: Eboni Arriaga, SOCIAL WORK THERAPIST [Primary Care Provider] -
[2019-03-01] MEDS: *HR* Heparin 5,000 UNIT/ML VIAL SQ SCH ×2 (05:48→17:33)
[2019-03-01] MEDS: Aspirin Enteric Coated 81 MG Tablet PO SCH (07:45)
[2019-03-01] MEDS: Loratadine 10 MG TABLET PO SCH (07:46)
[2019-03-01] MEDS: Gabapentin 300 MG CAPSULE PO SCH ×2 (07:46→20:03)
[2019-03-01] MEDS: Ascorbic Acid 500 MG TABLET PO SCH ×2 (07:46→15:29)
[2019-03-01] MEDS: Multivit/Ca/Min/Fe/FA 1 TAB TABLET PO SCH (07:46)
--- NOTE | 2019-03-01 10:30 | Internal Med Progress Note ---
Hospitalist Progress Note - Encounter Date of Encounter: 03/01/19 Time of Encounter: 10:28 - Subjective Interval History: Feels fine this morning. Having vaginal itching and requesting Diflucan. Plan for discharge planning tomorrow. - Exam Vitals: Temp Pulse Resp BP Pulse Ox 97.9 F 69 16 154/70 90 03/01/19 06:34 03/01/19 06:34 03/01/19 06:34 03/01/19 06:34 03/01/19 06:34 Exam: General: Ill-appearing and in no acute distress HEENT: No erythema of posterior pharynx. No exudates. Lymphatics: No mandibular or cervical lymphadenopathy Cardiovascular: RRR. No murmurs. No chest wall tenderness. Lungs: Clear to auscelltation bilaterally. Regular chest rise. Abdomen: Non-tender. No rebound or gaurding. Nl bowel sounds. Extremities: RLE with dressing in place, c/d/i Skin: No rahses, abrasions, or contusions. Nl cap refill. Psych: Nl attention. A&Ox3 Neuro: radiation officer II-XII intact. 5/5 strength. Sensation to light touch and pinprick intact. - Assessment and Plan (1) Surgical wound dehiscence Current Visit: Yes Status: Acute Assessment and Plan: Patient with history of recent right total knee replacement presented after a gradual fall with infection and dehiscence of surgical wound site. -Ortho was consulted and patient is s/p Right knee irrigation debridement extensor mechanism repair and wound closure on -Wound culutures showing Klebsiella aerogenes sesitive to multiple antibioitcs. -ID consulted, recommend vancomycin and ceftriaxone until 03/08, then switch to Bactrim for 2 weeks -PICC line placed -Awaiting placement PLAN: - Vancomycin and ceftriaxone - Will discuss placement with after holiday weekend - PT/OT (2) Vaginal pruritus Current Visit: Yes Status: Acute Assessment and Plan: Experiencing vaginal pruritus on antibiotics. - Diflucan (3) Fall Current Visit: Yes Status: Acute Assessment and Plan: Ground-level fall at home. - Will be discharged to rehabilitation facility for PT OT (4) Morbid obesity with BMI of 40.0-44.9, adult Current Visit: Yes Status: Acute Assessment and Plan: Morbidly obese with the BMI of 40.1. - May benefit from outpaitent referral to obesity clinic. DVT Prophylaxis: Heparin - Time Spent with Patient Total time spent is greater than 50% in coordination of care (as documented) at patient's floor/unit and/or counseling patient: Internal Medicine: Result - Labs CBC & Chem 7: 02/27/19 02:15 02/28/19 01:40 - VTE Documentation of Mechanical Device: Intermittent pneumatic compression device Consult Discharge Plan - Plan Referrals: Eboni Arriaga, VEGETABLE WASHING MACHINE OPERATOR [Primary Care Provider] - (1) Surgical wound dehiscence Qualifiers: Encounter type: initial encounter Qualified Code(s): T81.31XA - Disruption of external operation (surgical) wound, not elsewhere classified, initial encounter (3) Fall Qualifiers: Encounter type: initial encounter Qualified Code(s): W19.XXXA - Unspecified fall, initial encounter
[2019-03-01] MEDS ORDERED: Fluconazole 100 MG TABLET PO ONE (10:31)
[2019-03-01] MEDS: cefTRIAXone 2,000 MG in Water for inj. (sterile) 20 ML IVP SCH (15:28)
--- NOTE | 2019-03-01 21:31 | Orthopedics Progress Note ---
Date of Encounter: 03/01/19 Time of Encounter: 09:30 Subjective Principal diagnosis: Wound dehiscence status post total knee arthroplasty Interval history: The patient is without complaints. Afebrile vital signs are stable. Incision is clean dry and intact. Neurovascularly intact with regard to bilateral lower extremities. Assessment :stable. Plan mobilize , continue antibiotics, continue analgesics, discharge planning. Objective Vital signs: Vital Signs Temp Pulse Resp BP Pulse Ox 03/01/19 19:05 99.3 F 78 14 132/88 98 03/01/19 14:45 98.6 F 83 16 145/54 96 03/01/19 10:40 97.8 F 86 17 132/80 98 03/01/19 06:34 97.9 F 69 16 154/70 90 03/01/19 05:14 97.8 F 82 20 149/75 02/28/19 22:35 98.4 F 78 20 132/68 96 Intake and Output 03/01/19 03/01/19 03/01/19 07:59 15:59 23:59 Intake Total 450 / 2260 1020 / 2260 790 / 2260 Output Total 300 / 300 Balance 450 / 1960 720 / 1960 790 / 1960 Intake: IV Fluids 250 / 520 270 / 520 Rocephin 2,000 MG In Water for 20 / 20 inj. (sterile) 20 ML @ 600 mls/ hr IVP Q24H [facility] Rx#:[id number] Vancocin 750 MG In 0.9 % Sodium 250 / 500 250 / 500 Chloride 250 ML @ 250 mls/hr IVPB Q12H [facility] Rx#:[id number] Oral 200 / 1740 750 / 1740 790 / 1740 Output: Urine 300 / 300 Other: Meal Lunch Dinner Percent of Meal Consumed 100% 65% Stool Size Large Stool Consistency soft formed Stool Color Brown # Voids 1 1 1 # Bowel Movements 0 Weight 105.5 kg Patient Weight 03/01/19 23:59 Weight 105.5 kg - Labs CBC & BMP: 02/27/19 02:15 02/28/19 01:40 Labs: Abnormal lab results WBC 11.5 K/mcL (4.3-11.1) H 02/22/19 00:50 RBC 3.42 M/mcL (3.82-4.97) L 02/27/19 02:15 Hgb 9.8 g/dL (11.5-15.4) L 02/27/19 02:15 Hct 30.8 % (35.3-44.9) L 02/27/19 02:15 RDW 14.8 % (11.5-14.5) H 02/27/19 02:15 Plt Count 413 K/mcL (140-400) H 02/22/19 00:50 Potassium 3.3 mEq/L (3.5-5.1) L 02/22/19 01:00 Carbon Dioxide 30 mEq/L (23-29) H 02/26/19 02:45 Est GFR (Non-Af Amer) 53 (> 60) L 02/27/19 02:15 Glucose 107 mg/dL (70-105) H 02/28/19 01:40 POC Glucose 117 mg/dL (70-99) H 02/22/19 05:27 Vancomycin Trough 11 mcg/mL (5-10) H 02/27/19 00:17 - VTE Documentation of Mechanical Device: Intermittent pneumatic compression device Consult Discharge Plan - Plan Referrals: Eboni Arriaga, LIQUOR GRINDING MILL OPERATOR [Primary Care Provider] -
[2019-03-02] MEDS: *HR* Heparin 5,000 UNIT/ML VIAL SQ SCH (05:40)
[2019-03-02] MEDS: Multivit/Ca/Min/Fe/FA 1 TAB TABLET PO SCH (08:07)
[2019-03-02] MEDS: Loratadine 10 MG TABLET PO SCH (08:08)
[2019-03-02] MEDS: Gabapentin 300 MG CAPSULE PO SCH (08:08)
[2019-03-02] MEDS: Ascorbic Acid 500 MG TABLET PO SCH ×2 (08:09→15:55)
[2019-03-02] MEDS: Aspirin Enteric Coated 81 MG Tablet PO SCH (08:09)
[2019-03-02] MEDS: GuaiFENesin Liq 200 MG/10 ML UDC PO PRN ×2 (08:09→15:02)
[2019-03-02 08:18] LABS: Hematocrit 34.5 % (35.3-44.9); Hemoglobin 10.9 g/dL (11.5-15.4); Mean Corpuscular HGB Conc 31.6 g/dL (31.6-35.5); Mean Corpuscular Hemoglobin 28.2 pg (28.0-33.3); Mean Corpuscular Volume 89.1 fL (83.0-100.0); Mean Platelet Volume 9.4 fL (9.4-12.4); Platelet Count 301 K/mcL (140-400); Red Blood Count 3.87 M/mcL (3.82-4.97); Red Cell Distribution Width 15.4 % (11.5-14.5); White Blood Count 9.6 K/mcL (4.3-11.1)
--- NOTE | 2019-03-02 11:51 | Infectious Disease Progress No ---
ID Progress Note Date of Encounter: 03/02/19 Time of Encounter: 11:49 - Subjective Subjective: Patient seen and examined. states she's not feeling well at all. Feeling ear fullness, sore throat, sinus pressure and has a productive cough with brown green sputum. No pleuritic chest pain and no shortness of breath Vital signs noted Tmax 100.8 Cultures reviewed Labs noted - Objective CBC & Chem 7: 03/02/19 08:07 02/28/19 01:40 - Exam Vitals: Temp Pulse Resp BP Pulse Ox 99 F 84 18 129/78 96 03/02/19 07:00 03/02/19 07:00 03/02/19 07:00 03/02/19 07:00 03/02/19 07:00 Exam: GENERAL: Comfortable. Laying in bed NAD HEENT: RICARDO, EOMI. no tonsilar exudate LUNGS: Good air sounds bilaterally, no wheezing or rhonchi CV: RRR, S1 S2 ABDOMEN: Soft, nontender, + bowel sounds EXT: Adequate perfusion. No edema. surgical wound R knee intact NEURO: A&OX3; no focal deficit - Assessment and Plan (1) Status post total right knee replacement Current Visit: No Status: Acute s/p TKA right on 02/01/19 SNOMED Code(s): 5027100711550, 1982962875550 (2) Surgical wound dehiscence Current Visit: Yes Status: Acute s/p fall at home with trauma to R knee s/p TKA R 02/01/19 wound dehiscence s/p Right knee irrigation debridement extensor mechanism repair and wound closure 02/22/19 superficial wound culture positive for pansensitive Klebsiella aerogenes Qualifiers: Encounter type: initial encounter Qualified Code(s): T81.31XA - Disruption of external operation (surgical) wound, not elsewhere classified, initial encounter SNOMED Code(s): 68982233 (3) Diarrhea Current Visit: Yes Status: Acute could be related to antibiotics C. difficile negative Qualifiers: Diarrhea type: unspecified type Qualified Code(s): R19.7 - Diarrhea, unspecified SNOMED Code(s): 72726414 (4) HTN (hypertension) Current Visit: No Status: Chronic Qualifiers: Hypertension type: unspecified Qualified Code(s): I10 - Essential (primary) hypertension SNOMED Code(s): 57503951 (5) Depression Current Visit: No Status: Chronic Qualifiers: Depression Type: unspecified Qualified Code(s): F32.9 - Major depressive disorder, single episode, unspecified SNOMED Code(s): 26870221 (6) Fall Current Visit: Yes Status: Acute Qualifiers: Encounter type: initial encounter Qualified Code(s): W19.XXXA - Unspecified fall, initial encounter SNOMED Code(s): 5956634, 098618210 (7) Depression with anxiety Current Visit: No Status: Chronic SNOMED Code(s): 970302015 (8) Morbid obesity with BMI of 40.0-44.9, adult Current Visit: Yes Status: Acute SNOMED Code(s): 050276130, 60742045337117 (9) Drug allergy, antibiotic Current Visit: Yes Status: Acute no true allergy diarrhea with Augmentin SNOMED Code(s): 176886472252160 (10) Viral syndrome Current Visit: Yes Status: Acute likely the cause of the fever with sinus pressure, cough, sore throat etc SNOMED Code(s): 91037980 - Recommendations Recommendations: Continue vancomycin 750 mg IV every 12 hours with a call vancomycin trough around 10 (last one was 11) Continue Rocephin 2 g IV every 24 hours Duration of treatment through 03/08/2019 check stat Respiratory infectious panel (d/w nursing staff) diarrhea has resolved started on diflucan for patria vaginosis by hospitalist team - VTE Documentation of Mechanical Device: Intermittent pneumatic compression device Consult Discharge Plan - Plan Referrals: Eboni Arriaga CHEESEMAKER [Primary Care Provider] -
[2019-03-02 13:12] LABS: Adenovirus Not Detected (Not Detect); Bordetella Pertussis Not Detected (Not Detect); Chlamydophila pneumoniae Not Detected (Not Detect); Coronavirus 229E Not Detected (Not Detect); Coronavirus HKU1 Not Detected (Not Detect); Coronavirus NL63 Not Detected (Not Detect); Coronavirus OC43 Not Detected (Not Detect); Human Metapneumovirus Not Detected (Not Detect); Human Rhinovirus/Enterovirus DETECTED (Not Detect); Influenza A Subtype 2009 H1 Not Detected (Not Detect); Influenza A Untypeable Not Detected (Not Detect); Influenza B Not Detected (Not Detect); Mycoplasma pneumoniae Not Detected (Not Detect); Parainfluenza Virus 1 Not Detected (Not Detect); Parainfluenza Virus 2 Not Detected (Not Detect); Parainfluenza Virus 3 Not Detected (Not Detect); Parainfluenza Virus 4 Not Detected (Not Detect); Respiratory Syncytial Virus Not Detected (Not Detect)
[2019-03-02] MEDS ORDERED: Fluticasone Propionate Nasal 50 MCG/SPRAY BOTTLE NS SCH (14:12)
[2019-03-02 14:33] VITALS: BP 134/78
[2019-03-02] MEDS: cefTRIAXone 2,000 MG in Water for inj. (sterile) 20 ML IVP SCH (14:46)
--- NOTE | 2019-03-02 16:33 | Discharge Summary ---
Date of Encounter: 03/02/19 Time of Encounter: 16:24 - Discharge Diagnosis (1) Surgical wound dehiscence Priority: Primary Status: Acute Qualifiers: Encounter type: initial encounter Qualified Code(s): T81.31XA - Disruption of external operation (surgical) wound, not elsewhere classified, initial encounter (2) URI (upper respiratory infection) Priority: Secondary Status: Acute Qualifiers: URI type: unspecified viral URI Qualified Code(s): J06.9 - Acute upper respiratory infection, unspecified (3) Vaginal pruritus Priority: Secondary Status: Acute (4) Fall Priority: Secondary Status: Acute Qualifiers: Encounter type: initial encounter Qualified Code(s): W19.XXXA - Unspecified fall, initial encounter (5) Morbid obesity with BMI of 40.0-44.9, adult Priority: Secondary Status: Acute Hospital course: Ms. Rivera is a 64 year old female with history of recent right total knee replacement presented after a GLF with infection and dehiscence of surgical wound site. Ortho was consulted and patient is s/p Right knee irrigation debridement extensor mechanism repair and wound closure on . Wound cultures showing Klebsiella aerogenes sesitive to multiple antibioitcs. ID consulted, recommend vancomycin and ceftriaxone until 03/10, then switch to Bactrim for 2 weeks. -Wound care: Assess dressing daily Change dressing if >50% saturated RLE is to remain straight with brace in place until patient follows up with ortho -Patient to follow-up with ortho 1-2 weeks after hospital stay -Patient to follow-up with ID 4 weeks after discharge -CBC, CMP, and Vanco trough 03/08, fax results to Dr. Otero of [place] [facility] -Of note, patient suffering from a URI at time of discharge and had low-grade fever. Tested positive for rhino virus. Treated symptomatically. - Time Spent with Patient Total time spent providing and/or coordinating discharge services: 90 minutes Time spent: Greater than 30 minutes - Discharge Medications Prescriptions: New Docusate [Colace] 100 mg PO BID capsule Fluticasone Propionate Nasal [Flonase] 100 mcg NS DAILY #0 bottle Oxycodone HCl 5 mg PO Q6H PRN 7 Days #15 tablet PRN Reason: Pain GuaiFENesin/Codeine [Robitussin w/Codeine] 5 ml PO Q6HR 7 Days #1 bottle Sulfamethoxazole/Trimeth DS [Bactrim DS] 1 each PO BID 14 Days #28 tablet Ceftriaxone Sodium [Ceftriaxone] 2 gm IV Q24H 8 Days #8 vial.port Vancomycin HCl in 5 % Dextrose [Vancomycin 750 mg/250 ml-D5w] 750 mg IV Q12H 8 Days #17 plast..bag Continued Naproxen Sodium [Aleve] 220 mg PO Q12H Fexofenadine HCl 180 mg PO DAILY Multivit-Min/Iron/Folic/Sqk808 [Hair, Skin and Nails Caplet] 1 tab PO DAILY Multivitamin [Daily Multiple Vitamin] 1 tab PO DAILY Tizanidine HCl 4 mg PO BID PRN PRN Reason: Muscle Pain Buspirone HCl [Buspar] 10 mg PO DAILY Omeprazole [PriLOSEC] 20 mg PO BID Gabapentin 600 mg PO BID PARoxetine HCl [Paroxetine HCl] 10 mg PO DAILY Losartan Potassium [Cozaar] 100 mg PO DAILY Furosemide [Lasix] 20 mg PO DAILY PRN PRN Reason: Edema Acetaminophen [Tylenol] 500 mg PO Q8H PRN PRN Reason: Breakthrough Pain Aspirin [Lo-Dose Aspirin EC] 81 mg PO DAILY Chlorthalidone 50 mg PO DAILY Discontinued Docusate Sodium [Dok] 100 mg PO QAM PRN PRN Reason: edema Home Medications: Buspirone HCl [Buspar] 10 mg PO DAILY 02/01/19 [History] Fexofenadine HCl 180 mg PO DAILY 02/01/19 [History] Furosemide [Lasix] 20 mg PO DAILY PRN 02/01/19 [History] Gabapentin 600 mg PO BID 02/01/19 [History] Losartan Potassium [Cozaar] 100 mg PO DAILY 02/01/19 [History] Multivit-Min/Iron/Folic/Apf848 [Hair, Skin and Nails Caplet] 1 tab PO DAILY 02/01/19 [History] Multivitamin [Daily Multiple Vitamin] 1 tab PO DAILY 02/01/19 [History] Naproxen Sodium [Aleve] 220 mg PO Q12H 02/01/19 [History] Omeprazole [PriLOSEC] 20 mg PO BID 02/01/19 [History] PARoxetine HCl [Paroxetine HCl] 10 mg PO DAILY 02/01/19 [History] Tizanidine HCl 4 mg PO BID PRN 02/01/19 [History] Acetaminophen [Tylenol] 500 mg PO Q8H PRN 02/22/19 [History] Aspirin [Lo-Dose Aspirin EC] 81 mg PO DAILY 02/22/19 [History] Chlorthalidone 50 mg PO DAILY 02/22/19 [History] Docusate [Colace] 100 mg PO BID capsule 02/26/19 [Rx] Ceftriaxone Sodium [Ceftriaxone] 2 gm IV Q24H 8 Days #8 vial.port 03/02/19 [Rx] Fluticasone Propionate Nasal [Flonase] 100 mcg NS DAILY #0 bottle 03/02/19 [Rx] GuaiFENesin/Codeine [Robitussin w/Codeine] 5 ml PO Q6HR 7 Days #1 bottle 03/02/19 [Rx] Oxycodone HCl 5 mg PO Q6H PRN 7 Days #15 tablet 03/02/19 [Rx] Sulfamethoxazole/Trimeth DS [Bactrim DS] 1 each PO BID 14 Days #28 tablet 03/02/19 [Rx] Vancomycin HCl in 5 % Dextrose [Vancomycin 750 mg/250 ml-D5w] 750 mg IV Q12H 8 Days #17 plast..bag 03/02/19 [Rx] Allergies/Adverse Reactions: Allergy/AdvReac Type Severity Reaction Status Date / Time Amoxicillin [From Augmentin] AdvReac Diarrhea Verified 02/01/19 07:45 clavulanic acid AdvReac Diarrhea Verified 02/01/19 07:45 [From Augmentin] Date of admission: 02/23/19 18:06 Primary care physician: Eboni Arriaga CNP Consults: 02/22/19 00:12 Consult to Orthopedic Surgery [CONS] Routine Consulting Provider: [facility] Reason for Consult: Had right robotic assisted total knee replacement with Dr Mason on 02/01/19 and had mechanical fall yesterday causing incisional dehiscence. Was seen at [facility] who discussed with Dr Mason who agreed to see in consult. Call Completed: Yes 02/22/19 10:06 Consult to Nutrition [CONS] Routine Comment: Consulting Provider: NUTRITION Reason for Dietary Consult: Other Other:: Proper nutrition to facilitate wound healing Consult to Occupational Therapy [CONS] Routine Comment: Evaluate, develop and implement POC Reason for Consult: post knee surgery Does patient have active BEDREST order?: No Is patient medically & hemodynamically stable?: Yes Consult to Orthopedic Navigator [CONS] [CONS] Routine Consult to Physical Therapy [CONS] Routine Comment: Evaluate, develop and impliment POC Reason for Consult: post knee surgery Does patient have active BEDREST order?: No Is patient medically & hemodynamically stable?: Yes Consult to Weir Fisher [CONS] Routine Reason for SW Consult: post op joint replacement RT Post Op Consult [CONS] Routine 02/24/19 07:58 Consult to Infectious Diseases [CONS] Routine Consulting Provider: [facility] [place] Reason for Consult: Concerns for the septic arthritis Call Completed: Yes 02/24/19 09:52 Consult to Invasive Line Access Team [CONS] Routine Reason for Consult: Picc Line Insertion Line Type: PICC - Constitutional Vitals: Temp Pulse Resp BP Pulse Ox 97.8 F 81 16 134/78 98 03/02/19 14:00 03/02/19 14:00 03/02/19 14:00 03/02/19 14:00 03/02/19 14:00 Exam: General: Ill-appearing and in no acute distress HEENT: No erythema of posterior pharynx. No exudates. Lymphatics: No mandibular or cervical lymphadenopathy Cardiovascular: RRR. No murmurs. No chest wall tenderness. Lungs: Clear to auscelltation bilaterally. Regular chest rise. Abdomen: Non-tender. No rebound or gaurding. Nl bowel sounds. Extremities: RLE with dressing in place, c/d/i Skin: No rahses, abrasions, or contusions. Nl cap refill. Psych: Nl attention. A&Ox3 Neuro: team facilitator II-XII intact. 5/5 strength. Sensation to light touch and pinprick intact. - Patient Status Disposition: Transfer SNF Condition: Good Functional capacity at discharge: uses cane/walker Overall status at discharge: patient is progressing back to baseline - Discharge Instructions Follow Up With: Eboni Arriaga INCIDENT COORDINATOR [Primary Care Provider] - - Diet and Activity Activity: as per physical therapy Diet: advance to your usual diet - VTE Documentation of Mechanical Device: Intermittent pneumatic compression device
--- NOTE | 2019-03-02 17:05 | Physician Discharge Referral ---
ExtendedCare Referral Info Transfer To: SNF Provider in Charge: Tanner Mahajan MD Provider in Charge after Transfer: PCP Institutional Level of Care: Skilled - Diagnosis (1) Surgical wound dehiscence Priority: Primary Status: Acute (2) URI (upper respiratory infection) Priority: Secondary Status: Acute (3) Vaginal pruritus Priority: Secondary Status: Acute (4) Fall Priority: Secondary Status: Acute (5) Morbid obesity with BMI of 40.0-44.9, adult Priority: Secondary Status: Acute Prognosis: Good Aware of Diagnosis: Patient Aware of Prognosis: Patient - Transfer Medications Prescriptions: LORazepam [Ativan] 0.5 mg PO Q4HR PRN 7 Days #10 tablet PRN Reason: Anxiety Sulfamethoxazole/Trimeth DS [Bactrim DS] 1 each PO BID 14 Days #28 tablet Ceftriaxone Sodium [Ceftriaxone] 2 gm IV Q24H 8 Days #8 vial.port Oxycodone HCl 5 mg PO Q6H PRN 7 Days #15 tablet PRN Reason: Pain GuaiFENesin/Codeine [Robitussin w/Codeine] 5 ml PO Q6HR 7 Days #1 bottle Vancomycin HCl in 5 % Dextrose [Vancomycin 750 mg/250 ml-D5w] 750 mg IV Q12H 8 Days #17 plast..bag Home Medications: Buspirone HCl [Buspar] 10 mg PO DAILY 02/01/19 [History] Fexofenadine HCl 180 mg PO DAILY 02/01/19 [History] Furosemide [Lasix] 20 mg PO DAILY PRN 02/01/19 [History] Gabapentin 600 mg PO BID 02/01/19 [History] Losartan Potassium [Cozaar] 100 mg PO DAILY 02/01/19 [History] Multivit-Min/Iron/Folic/Vfd042 [Hair, Skin and Nails Caplet] 1 tab PO DAILY 02/01/19 [History] Multivitamin [Daily Multiple Vitamin] 1 tab PO DAILY 02/01/19 [History] Naproxen Sodium [Aleve] 220 mg PO Q12H 02/01/19 [History] Omeprazole [PriLOSEC] 20 mg PO BID 02/01/19 [History] PARoxetine HCl [Paroxetine HCl] 10 mg PO DAILY 02/01/19 [History] Tizanidine HCl 4 mg PO BID PRN 02/01/19 [History] Acetaminophen [Tylenol] 500 mg PO Q8H PRN 02/22/19 [History] Aspirin [Lo-Dose Aspirin EC] 81 mg PO DAILY 02/22/19 [History] Chlorthalidone 50 mg PO DAILY 02/22/19 [History] Docusate [Colace] 100 mg PO BID capsule 02/26/19 [Rx] Ceftriaxone Sodium [Ceftriaxone] 2 gm IV Q24H 8 Days #8 vial.port 03/02/19 [Rx] Fluticasone Propionate Nasal [Flonase] 100 mcg NS DAILY #0 bottle 03/02/19 [Rx] GuaiFENesin/Codeine [Robitussin w/Codeine] 5 ml PO Q6HR 7 Days #1 bottle 03/02/19 [Rx] LORazepam [Ativan] 0.5 mg PO Q4HR PRN 7 Days #10 tablet 03/02/19 [Rx] Oxycodone HCl 5 mg PO Q6H PRN 7 Days #15 tablet 03/02/19 [Rx] Sulfamethoxazole/Trimeth DS [Bactrim DS] 1 each PO BID 14 Days #28 tablet 03/02/19 [Rx] Vancomycin HCl in 5 % Dextrose [Vancomycin 750 mg/250 ml-D5w] 750 mg IV Q12H 8 Days #17 plast..bag 03/02/19 [Rx] Allergies/Adverse Reactions: Allergy/AdvReac Type Severity Reaction Status Date / Time Amoxicillin [From Augmentin] AdvReac Diarrhea Verified 02/01/19 07:45 clavulanic acid AdvReac Diarrhea Verified 02/01/19 07:45 [From Augmentin] - Respiratory Orders Smoking Cessation: Smoking cessation has been advised. For more information, call the [place] Tobacco Quit Line at 1-101-XAOE-NOW. - Lab Orders Lab Orders: CBC (03/08), Other (include drug levels w/frequency) (CMP and vanco trough 03/08) - Ancillary Orders May use pressure relief devices daily prn - Advance Directives Living Will: No Power of Dish Machine Operator for Health Care: No Code Status: Full Code - Mobility Orders Chair, Ambulate - Rehabiliation Orders Rehab Potential: Good Rehab Orders: Evaluation for Physical Therapy, Evaluation for Occupational Therapy - Treatments May check for fecal impaction rectally daily PRN - Diet Orders Regular CERTIFICATION: I certify that the transfer of the above named patient to an Extended Care Facility is necessary for the continuing treatment of the diagnosis listed. The above information is true and accurate reflection of patient's current condition. Tanner Mahajan MD Confidential - Redisclosure prohibited without a patient's written consent.
[2019-03-02] MEDS ORDERED: Aminoglycoside Consult 1 EACH MC ONE (18:52)
== END 2019-03-02 18:53 | DRG 908 ==
LOC: 3ANU → SUATTDRO 20:19 → 3NENU 02-22 08:53
PROVIDERS: ADMIT Internal Medicine Nephrology; ATTEND Internal Medicine